=== PATIENT | female | born 1955 | race Caucasian/White ===

== ENCOUNTER 2021-06-29 18:12 | Outpatient (REF) | payer MEDICARE, MEDICAID, SELFPAY | END 2021-06-29 18:13 | disposition home or self-care (01) | LOC: HO.LNP 18:12 | PROVIDERS: Visit Provider Internal Medicine | DX: J06.9 Acute upper respiratory infection, unspecified (principal); Z20.822 Contact with and (suspected) exposure to COVID-19 | CPT/HCPCS: U0003; U0005 ==

== ENCOUNTER 2021-09-28 08:35 | Outpatient (RCR) | payer MEDICARE, MEDICAID, SELFPAY | END 2022-01-17 09:26 | disposition home or self-care (01) | LOC: HO.WCC 08:35 | PROVIDERS: PCP Nurse Practitioner Family; Visit Provider Physician Assistant | DX: I87.312 Chronic venous hypertension (idiopathic) with ulcer of left lower extremity (principal); L97.821 Non-pressure chronic ulcer of other part of left lower leg limited to breakdown of skin; I87.321 Chronic venous hypertension (idiopathic) with inflammation of right lower extremity; I73.9 Peripheral vascular disease, unspecified | CPT/HCPCS: 87071; 87077; 87186; 87205; 97597; 99212; 99213 ==

== ENCOUNTER 2021-11-09 10:52 | Emergency (ER) | payer MEDICARE, MEDICAID, SELFPAY ==
[2021-11-09 10:58] VITALS: BP 214/115; PULSE 102; RESP 18; TEMP 37; O2SAT 98; BMI 24.9
--- NOTE | 2021-11-09 11:02 | ECG_ITS ---
Test Reason : high blood pressure Blood Pressure : / mmHG Vent. Rate : 095 BPM Atrial Rate : 095 BPM P-R Int : 186 ms QRS Dur : 066 ms QT Int : 362 ms P-R-T Axes : 052 006 004 degrees QTc Int : 454 ms Normal sinus rhythm Minimal voltage criteria for LVH, may be normal variant ( R in aVL ) Borderline ECG No previous ECGs available Referred By: Generic ED Physician Electronically Signed By:Pj Leslie
[2021-11-09 12:02] LABS: Basophils Percent Auto 0.3 % (0-2); Eosinophils Absolute Auto 0.2 X10*3/uL (0.0-0.4); Eosinophils Percent Auto 1.5 % (0-4); Hematocrit 37.9 % (37.0-47.0); Hemoglobin 11.8 g/dl (12.0-16.0); Imm Gran Abs Auto 0.05 X10*3/uL (0.00-0.03); Imm Gran Pct Auto 0.5 % (0.0-0.4); Lymphocytes Absolute Auto 1.5 X10*3/uL (1.2-4.9); Lymphocytes Percent Auto 14.5 % (20-40); MANUAL DIFF FLAG NO; Mean Corpuscular HGB Conc 31.1 g/dl (31.0-35.0); Mean Corpuscular Hemoglobin 26.6 pg (27.0-33.0); Mean Corpuscular Volume 85.4 fL (80.0-98.0); Monocytes Absolute Auto 0.7 X10*3/uL (0.1-1.2); Monocytes Percent Auto 6.6 % (2-11); Neutrophils Percent Auto 76.6 % (45-73); Platelet Count 366 X10*3/uL (160-400); Red Blood Count 4.44 X10*6/uL (4.20-5.50); Red Cell Distribution Width 14.1 % (11.0-16.0); White Blood Count 10.4 X10*3/uL (4.8-10.8)
[2021-11-09 12:19] LABS: Anion Gap 17 (12-20); Blood Urea Nitrogen 20 mg/dL (9-16); Calcium 10.5 mg/dL (8.4-10.2); Carbon Dioxide 23 mmol/L (22-29); Chloride 104 mmol/L (96-108); Creatinine Clr Calc Pharmacy 63.6; Estimated Glomerular Filt Rate > 60; Glucose Random 104 mg/dL (60-115); Potassium 4.2 mmol/L (3.3-5.1); Sodium 140 mmol/L (135-145)
[2021-11-09 12:25] LABS: Troponin-I High Sensitivity < 3.5 ng/L (<3.5-17.0)
--- NOTE | 2021-11-09 12:27 | ED.GENADULT ---
HPI - General Adult General Chief complaint: General Medical Stated complaint: HBP Time Seen by Provider: 11/09/21 12:27 Source: patient Mode of arrival: ambulatory Limitations: no limitations History of Present Illness HPI narrative: patient was seen at the wound clinic for a routine visit for left leg chronic wound, she was sent here for evaluation because the blood pressure was elevated, she states she is been in a lot of stress of her family reason. The patient denies any chest pain any shortness of breath any other systemic complaints Onset (ago): hour(s) (2) Radiation: non-radiation Severity: moderate Relieving factors: none Exacerbating factors: none Related Data Previous Rx's Medication Instructions Recorded tramadol 50 mg tablet 50 mg PO BID PRN 8 Days #16 tab 10/26/21 amlodipine 5 mg tablet (Norvasc) 5 mg PO DAILY #10 tab 11/09/21 Allergies Allergy/AdvReac Type Severity Reaction Status Date / Time gabapentin Allergy Unknown nausea and Verified 06/29/21 13:47 vomiting levofloxacin Allergy Unknown nausea and Verified 06/29/21 13:47 vomiting Sulfa (Sulfonamide Allergy Unknown vomiting Verified 06/29/21 13:47 Antibiotics) sulfamethoxazole Allergy Unknown RASH Verified 06/29/21 13:47 [From BACTRIM] trimethoprim [From BACTRIM] Allergy Unknown RASH Verified 06/29/21 13:47 Review of Systems Review of Systems: Yes all other systems are reviewed and are negative Cardiovascular: Cardiovascular: Denies chest pain, Denies chest pain at rest, Denies chest pain with activity and Denies rapid heart rate Respiratory: Respiratory: Reports no additional respiratory complaints Gastrointestinal: Gastrointestinal: Denies abdominal pain Neurologic: Reports system reviewed and no additional complaints, except as documented [facility] Past Medical History [facility] Narrative: varicose vein,anxiety disorder Social History Social History Advance Directives: No Advance Directives Information Provided: No Physical Exam Vital Signs: Vital Signs: Last Vital Signs Temp 98.6 F 11/09/21 10:58 Pulse 101 H 11/09/21 13:30 Resp 16 11/09/21 13:30 BP 187/87 H 11/09/21 13:30 Pulse Ox 97 11/09/21 13:30 BMI result Body Mass Index 24.9 Const: General: cooperative, alert and anxious Nutritional Appearance: well nourished Orientation/consciousness: patient oriented x3 HENMT: Head: Yes normal to inspection Face and sinus: Yes normal facial exam Mouth: Normal oral and palatal mucosa present Throat: Yes posterior oropharynx normal Neck: Neck: Yes normal visual inspection, Yes full ROM and Yes no lymphadenopathy Chest: Chest palpation & inspection: normal inspection of the chest Resp: Effort & Inspection: normal respiratory effort Auscultation: clear to auscultation bilaterally Cardio: Jugular venous distension: no JVD Rhythm: regular rhythm GI: Inspection: Yes normal to inspection Palpation (GI): Soft to palpation, nontender, no guarding and not rigid Auscultation: normal bowel sounds Skin: General skin exam: no rashes or lesions noted, elasticity normal and turgor normal Neuro: General: patient oriented x3 Extrem: Other: good pulses lower extremities,she has dressing in the left lower leg Course Reevaluation(s) Reevaluation #1: feeling better BP down 187/87 ,started on norvasc 5 mg ,I discussed with her PCP Arian Byrd will follow up closely,we will start the pt on norvasc 5 mg daily Medical Decision Making Lab Data Result diagrams: 11/09/21 11:40 11/09/21 11:40 Labs: Lab Results 11/09/21 11/09/21 11/09/21 Range/Units 11:40 11:40 11:40 WBC 10.4 (4.8-10.8) X10*3/uL RBC 4.44 (4.20-5.50) X10*6/uL Hgb 11.8 L (12.0-16.0) g/dl Hct 37.9 (37.0-47.0) % MCV 85.4 (80.0-98.0) fL MCH 26.6 L (27.0-33.0) pg MCHC 31.1 (31.0-35.0) g/dl RDW 14.1 (11.0-16.0) % Plt Count 366 (160-400) X10*3/uL MPV 10.0 (9.4-12.3) fL Immature Gran % (Auto) 0.5 H (0.0-0.4) % Neut % (Auto) 76.6 H (45-73) % Lymph % (Auto) 14.5 L (20-40) % Cocke % (Auto) 6.6 (2-11) % Eos % (Auto) 1.5 (0-4) % Baso % (Auto) 0.3 (0-2) % Lymph # (Auto) 1.5 (1.2-4.9) X10*3/uL Cocke # (Auto) 0.7 (0.1-1.2) X10*3/uL Eos # (Auto) 0.2 (0.0-0.4) X10*3/uL Baso # (Auto) 0.0 (0.0-0.2) X10*3/uL Abs Immat Gran (auto) 0.05 H (0.00-0.03) X10*3/uL Absolute Neuts (auto) 8.0 (2.0-8.3) x10*3/uL Absolute Nucleated RBC 0.000 (0.0-0.012) X10*3/uL Nucleated RBC % (auto) 0.0 (0.0-0.2) /100WBC Sodium 140 (135-145) mmol/L Potassium 4.2 (3.3-5.1) mmol/L Chloride 104 (96-108) mmol/L Carbon Dioxide 23 (22-29) mmol/L Anion Gap 17 (12-20) BUN 20 H (9-16) mg/dL Creatinine 0.79 (0.5-1.4) mg/dL Estim Creat Clear Calc 63.6 Estimated GFR > 60 Random Glucose 104 (60-115) mg/dL Calcium 10.5 H (8.4-10.2) mg/dL Troponin I High Sens < 3.5 (<3.5-17.0) ng/L ECG Data Pacemaker model: NSR 98 no ischemic changes Discharge Plan Discharge Clinical Impression: Hypertension Patient Disposition: Home, Self-Care Instructions: Hypertension (ED) Additional Instructions: follow-up with your primary care physician return to the emergency room if you worse any concern with started you on Norvasc 5 mg daily Prescriptions: New amlodipine [Norvasc] 5 mg tablet 5 mg PO DAILY Qty: 10 RF: 0 No Action tramadol 50 mg tablet 50 mg PO BID PRN (Reason: pain) 8 Days Qty: 16 RF: 0 Referrals: Arian Heredia, [facility] [Primary Care Provider] - 2 days Interventions: ED Discharge Assessment Last Done: 11/09/21 14:03 Discharge Date/Time: 11/09/21 14:05
--- NOTE | 2021-11-09 12:38 | PC.NURSE ---
Pt received from triage: AOX4 but very anxious. Pt states she went to the wound clinic for LLE wound care today, very nervous for family reasons, and sent here for elevated BP. Pt does not take any BP meds NSR to sinus tachy noted on monitor. Lungs clear. Pt abd soft, round and non-tender. Pt ambulatory with steady gait.
[2021-11-09 12:40] VITALS: BP 242/109; PULSE 103; RESP 18; O2SAT 98
[2021-11-09] MEDS: LORazepam 1 MG TABLET PO (12:42)
[2021-11-09 13:30] VITALS: BP 187/87; PULSE 101; RESP 16; O2SAT 97
[2021-11-09] MEDS: amLODIPine Besylate 5 MG TABLET PO (13:48)
== END 2021-11-09 14:05 | disposition home or self-care (01) ==
PROVIDERS: Emergency Provider Emergency Medicine; PCP Nurse Practitioner Family
DX: I10 Essential (primary) hypertension (principal); Z72.89 Other problems related to lifestyle; Z63.79 Other stressful life events affecting family and household
CPT/HCPCS: 36415; 80048; 84484; 85025; 93005; 99283

== ENCOUNTER 2021-11-16 12:35 | Outpatient (REF) | payer MEDICARE, MEDICAID, SELFPAY ==
--- NOTE | ~2021-11-16 | US_ITS ---
EXAMINATION: US LOWER EXTREMITY VENOUS (REFLUX EXAM), BILATERAL CLINICAL INDICATION: This is a 66-year-old female with a history of left lower extremity Venaseal. COMPARISON: Comparison is made to a previous study dated 04/20/2020 and 03/30/2020. TECHNIQUE: Color flow triplex imaging and compression Doppler was performed to evaluate both the deep and the superficial systems bilaterally. To evaluate the superficial system, the examination was performed in the upright position. Color-flow Doppler ultrasound and compression ultrasound were utilized. In addition, maneuvers were utilized to demonstrate reflux. FINDINGS: 1. DEEP VENOUS ULTRASOUND OF THE RIGHT LOWER EXTREMITY: Common Femoral Vein: Compressible, normal respiratory variation and augmented flow. Femoral vein: Compressible, normal color flow and augmentation. Popliteal Vein: Compressible, normal augmentation. Deep Reflux: There is no evidence of reflux in the deep system in either the common femoral vein or the popliteal vein. There is no evidence of a Aguilar's cyst. 2. SUPERFICIAL ULTRASOUND WITH DOPPLER OF RIGHT LOWER EXTREMITY: GREAT SAPHENOUS VEIN: Saphenofemoral Junction: 0.6 cm. There is no reflux. Mid Thigh: 0.2 cm. There is no reflux. Above Knee: 0.2 cm. There is no reflux. Below Knee: 0.1 cm. The reflux time is 3336 ms. Mid Calf: 0.2 cm. The reflux time is 1604 ms. Ankle: 0.2 cm. The reflux time is 548 ms. GSV REFLUX: There is no reflux at the saphenofemoral junction. There is reflux below the knee. This is similar to the previous study. 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 This was not apparent previously. SMALL SAPHENOUS VEIN: Proximal: 0.2 cm. The reflux time is 3320 ms. Distal: 0.1 cm. The reflux time is 2480 ms. SSV REFLUX: There is now reflux at the junction in the small saphenous vein. This reflux was not apparent on the previous study. VEIN OF GIACOMINI: None Imaged. PERFORATORS: There are 0.2 cm perforators in the mid thigh and mid calf, respectively, without evidence of reflux. VARICOSITIES: There are 0.6 cm varicose veins off the saphenofemoral junction without reflux. 3. DEEP VENOUS ULTRASOUND OF THE LEFT LOWER EXTREMITY: Common Femoral Vein: Compressible, normal respiratory variation and augmented flow. Femoral Vein: Compressible, normal color flow and augmentation. Popliteal Vein: Compressible, normal augmentation. Deep Reflux: There is no evidence of reflux in the deep system in either the common femoral vein or the popliteal vein. There is no evidence of a Aguilar's cyst. 4. SUPERFICIAL ULTRASOUND WITH DOPPLER OF LEFT LOWER EXTREMITY: GREAT SAPHENOUS VEIN: Saphenofemoral Junction: 0.8 cm. There is no reflux. Mid Thigh: 0.4 cm. This appears closed status post treatment. Above Knee: 0.3 cm. This appears closed status post treatment. Below Knee: 0.2 cm. The reflux time is 624 ms. Mid Calf: 0.2 cm. There is no reflux. Ankle: Could not be evaluated because there is a wound present. GSV REFLUX: There is isolated reflux below the knee. There is no junctional reflux. DUPLICATED GREAT SAPHENOUS VEIN: There is a 0.6 cm duplicated lateral great saphenous vein without evidence of reflux at the junction. SMALL SAPHENOUS VEIN: Proximal: 0.3 cm Distal: 0.2 cm SSV REFLUX: No evidence of reflux. VEIN OF GIACOMINI: None Imaged. PERFORATORS: There are 0.2 cm perforators in the mid thigh and proximal calf without reflux. VARICOSITIES: None Imaged US/US venous duplex LE BI IMPRESSION: 1. There is a patent right great saphenous vein without evidence of reflux saphenofemoral junction. There is reflux below the knee down to the ankle. 2. 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 3. There is a patent right small saphenous vein with reflux at the junction. 4. There is a patent junction of the left great saphenous vein without extension of thrombus into the deep venous system. There is then closure beginning in the mid left superficial femoral vein. 5. There is a patent left lateral great saphenous vein without evidence of reflux. 6. There is a patent left small saphenous vein without evidence of reflux.
== END 2021-11-16 12:36 | disposition home or self-care (01) ==
LOC: HO.US 12:35
PROVIDERS: PCP Nurse Practitioner Family; Visit Provider Physician Assistant
DX: I87.2 Venous insufficiency (chronic) (peripheral) (principal)
CPT/HCPCS: 93970

== ENCOUNTER → 2021-11-23 10:08 | Outpatient (BNVA) | payer MEDICARE, MEDICAID, SELFPAY | PROVIDERS: PCP Nurse Practitioner Family; Visit Provider Surgery Vascular Surgery | DX: I83.12 Varicose veins of left lower extremity with inflammation (principal) | CPT/HCPCS: 99212 ==

== ENCOUNTER → 2021-12-07 14:05 | Outpatient (BNVA) | payer MEDICARE, MEDICAID, SELFPAY | PROVIDERS: PCP Nurse Practitioner Family; Visit Provider Surgery Vascular Surgery | DX: I83.12 Varicose veins of left lower extremity with inflammation (principal) | CPT/HCPCS: 99212 ==

== ENCOUNTER → 2022-01-25 11:02 | Outpatient (BNVA) | payer MEDICARE, MEDICAID, SELFPAY | PROVIDERS: PCP Nurse Practitioner Family; Visit Provider Surgery Vascular Surgery | DX: L97.929 Non-pressure chronic ulcer of unspecified part of left lower leg with unspecified severity (principal) | CPT/HCPCS: 99212 ==

== ENCOUNTER 2022-01-27 09:09 | Inpatient (IN) | payer MEDICARE, SELFPAY ==
--- NOTE | ~2022-01-27 | MR_ITS ---
EXAMINATION: MRI LEFT LOWER LEG WITHOUT AND WITH CONTRAST. CLINICAL INFORMATION: Chronic left leg wound, elevated white count, cellulitis, rule out osteomyelitis. COMPARISON: X-ray 01/27/2022 TECHNIQUE: MRI in a high-field magnet without and with contrast. 10 cc Gadavist. FINDINGS: Multifocal areas of skin irregularity/ulceration circumferentially around the mid and distal tibia/fibula. There is soft tissue swelling, with skin/subcutaneous edema/cellulitis. No focal organized or drainable fluid collections. Marrow signal in the tibia and fibula is within normal limits without MRI evidence of osteomyelitis. No evidence of muscle tear, or significant edema to suggest muscle strain or myositis. Visualized tendons intact. MR/MR lower leg LT wo/w con IMPRESSION: Extensive areas of skin irregularity/ulceration in the mid and distal tibia/fibula. There is subcutaneous edema/cellulitis present. No organized or drainable fluid collection in the soft tissues. No MRI findings to suggest osteomyelitis.
--- NOTE | ~2022-01-27 | XR_ITS ---
EXAMINATION: XR TIBIA AND FIBULA, LEFT CLINICAL INFORMATION: Rule out osteomyelitis. COMPARISON: None TECHNIQUE: AP and lateral views of the left tibia and fibula were obtained. FINDINGS: Soft tissue wound with overlying radiopaque densities is seen in the inferolateral soft tissues superficial to the distal fibula. The tibia and fibula are intact. No acute fracture or dislocation is seen. No overt cortical erosive changes are seen. Mild femoral-tibial degenerative joint changes are seen in the left knee most pronounced medially. The left ankle joint is unremarkable. Generalized mild soft tissue swelling. XR/XR tibia fibula LT 2V IMPRESSION: Soft tissue wound with associated calcification/possible ointment/bandaging without acute underlying osseous abnormality.
[2022-01-27 09:13] VITALS: BP 142/75; PULSE 93; RESP 16; TEMP 36.8; O2SAT 97; BMI 34.1
--- NOTE | 2022-01-27 09:31 | ED.WOUNDLAC ---
HPI - Wound/Laceration General Chief Complaint: Wound/Laceration Stated Complaint: antibiotic Time Seen by Provider: 01/27/22 09:18 Source: patient and family () Mode of arrival: ambulatory Limitations: no limitations History of Present Illness HPI narrative: Patient is a 66 year old female presenting to the emergency department today with a chronic left lower leg wound. Patient states that Dr. Orozco strongly recommended the patient come to the emergency department for IV antibiotics and admission. Patient states that she has been dealing with this left lower leg wound for quite awhile. Patient denies any dizziness, lightheadedness, abdominal pain, nausea, vomiting, fever, chills, blurry vision, double vision, loss of vision, chest pain, difficulty breathing, shortness of breath, back pain, night sweats, pain with urination, increased urinary frequency, increased urinary urgency, blood in her urine or stool, syncope or a near syncopal episode, recent trauma or falls, bowel incontinence, bladder incontinence, bowel retention, bladder retention, or any other complaints at this time. Associated symptoms: none Related Data Home Medications Medication Instructions Recorded Confirmed acetaminophen 500 mg tablet 1,000 mg PO Q6H PRN 01/27/22 01/27/22 ibuprofen 600 mg tablet 600 mg PO Q6H PRN 01/27/22 01/27/22 omeprazole 20 mg capsule,delayed 20 mg PO DAILY 01/27/22 01/27/22 release Previous Rx's Medication Instructions Recorded metoprolol succinate 100 mg 100 mg PO DAILY 90 Days #90 tab 12/14/21 tablet,extended release 24 hr amlodipine 5 mg tablet (Norvasc) 10 mg PO DAILY #60 tab 01/06/22 buspirone 5 mg tablet 5 mg PO BID #60 tab 01/25/22 Allergies Allergy/AdvReac Type Severity Reaction Status Date / Time gabapentin Allergy Unknown nausea and Verified 01/25/22 11:14 vomiting levofloxacin Allergy Unknown nausea and Verified 01/25/22 11:14 vomiting Sulfa (Sulfonamide Allergy Unknown vomiting Verified 01/25/22 11:14 Antibiotics) sulfamethoxazole Allergy Unknown RASH Verified 01/25/22 11:14 [From BACTRIM] trimethoprim [From BACTRIM] Allergy Unknown RASH Verified 01/25/22 11:14 Review of Systems Constitutional: Constitutional: Reports no additional constitutional complaints, Denies chills, Denies fever(s) and Denies night sweats Eyes: Eyes: Reports no additional eye complaints, Denies blurry vision, Denies change in vision, Denies diplopia, Denies eye discharge, Denies loss of vision and Denies eye pain ENT: Denies dizziness Cardiovascular: Cardiovascular: Reports no additional cardiovascular complaints, Denies chest pain, Denies lightheadedness, Denies Loss of Consciousness and Denies dyspnea Respiratory: Respiratory: Reports no additional respiratory complaints and Denies dyspnea Gastrointestinal: Gastrointestinal: Reports no additional gastrointestinal complaints, Denies abdominal pain, Denies melena, Denies hematochezia, Denies change in bowel habits and Denies change in stool character Genitourinary: Genitourinary: Denies hematuria, Denies urinary frequency, Denies dysuria, Denies urinary incontinence, Denies urinary hesitancy and Denies urinary urgency Musculoskeletal: Musculoskeletal: Reports no additional musculoskeletal complaints, Denies numbness and Denies tingling Integumentary/Breasts: Comments: left lower leg chronic wound Neurologic: Denies dizziness, Denies loss of vision, Denies numbness and Denies tingling Psychiatric: Psychiatric: Reports no additional psychiatric complaints Endocrine: Endocrine: Reports no additional endocrine complaints Hematologic/Lymphatic: Hematologic/Lymphatic: Reports no additional hematologic/lymphatic complaints Allergic/Immunologic: Allergic/Immunologic: Reports no additional allergic/immunologic complaints PMFSH Past Medical History Attestation statement: The following information was validated with the patient. Source: old records reviewed Medical History HTN (hypertension) Social History Social History Alcohol intake: never Patient Tobacco Use Status: Never used Tobacco Use of substances other than those prescribed or required for medical reasons: No Advance Directives: No Advance Directives Information Provided: No Physical Exam Vital Signs: Vital Signs: Last Vital Signs Temp 98.6 F 01/27/22 14:57 Pulse 92 01/27/22 14:57 Resp 16 01/27/22 14:57 BP 160/61 H 01/27/22 14:57 Pulse Ox 97 01/27/22 14:57 BMI result Body Mass Index 34.1 Const: General: cooperative, no acute distress, alert and awake Nutritional Appearance: well nourished Orientation/consciousness: patient oriented x3 Limitations: no limitations HEENT: Head: Yes normal to inspection and Yes atraumatic Ears: hearing grossly normal bilaterally and external ears normal General nose exam: Normal external nose present, no nasal discharge noted and no epistaxis Face and sinus: Yes normal facial exam, No abrasion and No laceration Mouth: Normal oral and palatal mucosa present, no drooling and no muffled voice Eyes: General: appearance normal, both eyes and all related structures Periorbital: periorbital findings normal Eyelids: Yes eyelids normal Conjunctivae: conjunctivae normal Pupils: Equal, round and reactive pupils present EOM: EOMs intact bilaterally Neck: Neck: Yes normal visual inspection, Yes full ROM and Yes no lymphadenopathy Chest: Chest palpation & inspection: normal inspection of the chest Resp: Effort & Inspection: normal respiratory effort and able to speak in complete sentences Auscultation: clear to auscultation bilaterally Cardio: Rate: regular rate Rhythm: regular rhythm GI: Inspection: Yes normal to inspection Skin: Other: patient has an extensive wound to the left lower leg in various stages of disease (see picture attached to Dr. Orozco's latest note from 01/2022) Neuro: General: patient oriented x3 and moves all extremities Cranial nerves: Yes Equal, round and reactive pupils present Cognition (Neuro): normal cognition Motor exam (neuro): 5/5 motor strength present throughout Sensory Exam: Normal double simultaneous stimulation for sensation Coordination: [id number] test normal Extrem: General: Yes normal to inspection, Yes full ROM and Yes capillary refill normal Psych: Appearance: grossly normal Mental Status: mental status grossly normal Affect: normal affect Attitude: cooperative Thought process: Normal thought process present Thought content: Normal thought content present Insight: Good insight present (Psych) MDM - Wound/Laceration MDM Narrative Medical decision making narrative: Patient is a 66 year old female presenting to the emergency department today with left lower leg wounds. Patient's physical exam showed an extensive left lower leg wound in multiple stages of disease. Patient's blood work showed an elevated WBC count with a left shift. Patient's left lower x-ray showed a soft tissue wound with associated calcification/possible ointment/bandaging without underlying osseous abnormality. I explained my physical exam findings as well as all test results to the patient and the patient's . I answered all questions asked by the patient and the patient's . Patient received IV ABX and pain management. I spoke to Dr. Pierce who agreed to admission of the patient. Patient and the patient's verbalized agreement and understanding with this treatment plan and admission. Differential Diagnosis Differential diagnosis: Likely avulsion of skin (chronic lower left leg ulceration) Medical Records Attestation: I reviewed the patient's medical records. Lab Data Attestation: I reviewed the patient's lab results. Result diagrams: 01/27/22 10:04 01/27/22 10:04 Labs: Lab Results 01/27/22 01/27/22 01/27/22 Range/Units 10:04 10:04 10:04 WBC 11.9 H (4.8-10.8) X10*3/uL RBC 3.51 L D (4.20-5.50) X10*6/uL Hgb 9.6 L (12.0-16.0) g/dl Hct 30.6 L (37.0-47.0) % MCV 87.2 (80.0-98.0) fL MCH 27.4 (27.0-33.0) pg MCHC 31.4 (31.0-35.0) g/dl RDW 14.5 (11.0-16.0) % Plt Count 355 (160-400) X10*3/uL MPV 9.5 (9.4-12.3) fL Immature Gran % (Auto) 0.3 (0.0-0.4) % Neut % (Auto) 85.2 H (45-73) % Lymph % (Auto) 7.4 L (20-40) % Laurel % (Auto) 6.7 (2-11) % Eos % (Auto) 0.3 (0-4) % Baso % (Auto) 0.1 (0-2) % Lymph # (Auto) 0.9 L (1.2-4.9) X10*3/uL Laurel # (Auto) 0.8 (0.1-1.2) X10*3/uL Eos # (Auto) 0.0 (0.0-0.4) X10*3/uL Baso # (Auto) 0.0 (0.0-0.2) X10*3/uL Abs Immat Gran (auto) 0.04 H (0.00-0.03) X10*3/uL Absolute Neuts (auto) 10.1 H (2.0-8.3) x10*3/uL Absolute Nucleated RBC 0.000 (0.0-0.012) X10*3/uL Nucleated RBC % (auto) 0.0 (0.0-0.2) /100WBC ESR 92 H (0-20) MM/HR Sodium 139 (135-145) mmol/L Potassium 3.6 (3.3-5.1) mmol/L Chloride 106 (96-108) mmol/L Carbon Dioxide 22 (22-29) mmol/L Anion Gap 15 (12-20) BUN 17 H (9-16) mg/dL Creatinine 0.79 (0.5-1.4) mg/dL Estim Creat Clear Calc 74.1 Estimated GFR > 60 Random Glucose 120 H (60-115) mg/dL Calcium 9.4 D (8.4-10.2) mg/dL Total Bilirubin 0.6 (0.0-1.0) mg/dL AST 9 (5-31) U/L ALT 11 (0-31) U/L Alkaline Phosphatase 81 (39-117) U/L C-Reactive Protein 12.90 H (< or = 0.50) mg/dL C-React Prot High Sens Total Protein 6.8 (6.5-8.0) g/dL Albumin 4.1 (3.5-5.0) g/dL COVID-19 ([facility]) (Negative) COVID-19 Clin Com 01/27/22 01/27/22 Range/Units 10:04 11:39 WBC (4.8-10.8) X10*3/uL RBC (4.20-5.50) X10*6/uL Hgb (12.0-16.0) g/dl Hct (37.0-47.0) % MCV (80.0-98.0) fL MCH (27.0-33.0) pg MCHC (31.0-35.0) g/dl RDW (11.0-16.0) % Plt Count (160-400) X10*3/uL MPV (9.4-12.3) fL Immature Gran % (Auto) (0.0-0.4) % Neut % (Auto) (45-73) % Lymph % (Auto) (20-40) % Laurel % (Auto) (2-11) % Eos % (Auto) (0-4) % Baso % (Auto) (0-2) % Lymph # (Auto) (1.2-4.9) X10*3/uL Laurel # (Auto) (0.1-1.2) X10*3/uL Eos # (Auto) (0.0-0.4) X10*3/uL Baso # (Auto) (0.0-0.2) X10*3/uL Abs Immat Gran (auto) (0.00-0.03) X10*3/uL Absolute Neuts (auto) (2.0-8.3) x10*3/uL Absolute Nucleated RBC (0.0-0.012) X10*3/uL Nucleated RBC % (auto) (0.0-0.2) /100WBC ESR (0-20) MM/HR Sodium (135-145) mmol/L Potassium (3.3-5.1) mmol/L Chloride (96-108) mmol/L Carbon Dioxide (22-29) mmol/L Anion Gap (12-20) BUN (9-16) mg/dL Creatinine (0.5-1.4) mg/dL Estim Creat Clear Calc Estimated GFR Random Glucose (60-115) mg/dL Calcium (8.4-10.2) mg/dL Total Bilirubin (0.0-1.0) mg/dL AST (5-31) U/L ALT (0-31) U/L Alkaline Phosphatase (39-117) U/L C-Reactive Protein (< or = 0.50) mg/dL C-React Prot High Sens Cancelled Total Protein (6.5-8.0) g/dL Albumin (3.5-5.0) g/dL COVID-19 ([facility]) Negative (Negative) COVID-19 Clin Com See Note Imaging Data Tibia/Fibula x-ray (left): Attestation: I personally reviewed and interpreted this imaging study as follows: My impression: no acute aliya process. Radiologist's impression: EXAMINATION: XR TIBIA AND FIBULA, LEFT CLINICAL INFORMATION: Rule out osteomyelitis. COMPARISON: None? TECHNIQUE: AP and lateral views of the left tibia and fibula were obtained. FINDINGS: Soft tissue wound with overlying radiopaque densities is seen in the inferolateral soft tissues superficial to the distal fibula. The tibia and fibula are intact. No acute fracture or dislocation is seen. No overt cortical erosive changes are seen. Mild femoral-tibial degenerative joint changes are seen in the left knee most pronounced medially. The left ankle joint is unremarkable. Generalized mild soft tissue swelling. XR/XR tibia fibula LT 2V IMPRESSION: Soft tissue wound with associated calcification/possible ointment/bandaging without acute underlying osseous abnormality. Dictated By: Shaun Stewart MD Signed By: Electronically signed by Shaun Stewart MD 01/27/22 1031 Discharge Plan Discharge Clinical Impression: Leg wound, left, Cellulitis Patient Disposition: Admitted As Inpatient
[2022-01-27 10:11] LABS: MANUAL DIFF FLAG NO
[2022-01-27 10:15] LABS: Basophils Percent Auto 0.1 % (0-2); Eosinophils Percent Auto 0.3 % (0-4); Hematocrit 30.6 % (37.0-47.0); Hemoglobin 9.6 g/dl (12.0-16.0); Imm Gran Abs Auto 0.04 X10*3/uL (0.00-0.03); Imm Gran Pct Auto 0.3 % (0.0-0.4); Lymphocytes Absolute Auto 0.9 X10*3/uL (1.2-4.9); Lymphocytes Percent Auto 7.4 % (20-40); Mean Corpuscular HGB Conc 31.4 g/dl (31.0-35.0); Mean Corpuscular Hemoglobin 27.4 pg (27.0-33.0); Mean Corpuscular Volume 87.2 fL (80.0-98.0); Mean Platelet Volume 9.5 fL (9.4-12.3); Monocytes Absolute Auto 0.8 X10*3/uL (0.1-1.2); Monocytes Percent Auto 6.7 % (2-11); Neutrophils Absolute Auto 10.1 x10*3/uL (2.0-8.3); Neutrophils Percent Auto 85.2 % (45-73); Platelet Count 355 X10*3/uL (160-400); Red Blood Count 3.51 X10*6/uL (4.20-5.50); Red Cell Distribution Width 14.5 % (11.0-16.0); White Blood Count 11.9 X10*3/uL (4.8-10.8)
[2022-01-27 10:30] LABS: Alanine Aminotransferase 11 U/L (0-31); Albumin Level 4.1 g/dL (3.5-5.0); Alkaline Phosphatase 81 U/L (39-117); Anion Gap 15 (12-20); Aspartate Amino Transferase 9 U/L (5-31); Bilirubin Total 0.6 mg/dL (0.0-1.0); Blood Urea Nitrogen 17 mg/dL (9-16); Calcium 9.4 mg/dL (8.4-10.2); Carbon Dioxide 22 mmol/L (22-29); Chloride 106 mmol/L (96-108); Creatinine Clr Calc Pharmacy 74.1; Estimated Glomerular Filt Rate > 60; Glucose Random 120 mg/dL (60-115); Potassium 3.6 mmol/L (3.3-5.1); Sodium 139 mmol/L (135-145); Total Protein 6.8 g/dL (6.5-8.0)
[2022-01-27 10:57] LABS: Erythrocyte Sedimentation Rate 92 MM/HR (0-20)
[2022-01-27] MEDS: Morphine Sulfate 2 MG/ML CARTRIDGE 1 MG IVPUSH (10:58)
[2022-01-27] MEDS: ondansetron HCL 4 MG/2 ML VIAL IVPUSH ×2 (10:58→18:37)
[2022-01-27] MEDS: Piperacillin Sodium/Tazobactam 4.5 GM in 0.9 % Sodium Chloride 100 ML IV (11:02)
--- NOTE | 2022-01-27 11:13 | PC.NURSE ---
pt/ aware of plan of care for admission to hosp.
[2022-01-27 12:03] LABS: COVID-19 Test Negative (Negative)
[2022-01-27 12:34] VITALS: BP 139/65; PULSE 87; RESP 17; TEMP 36.7; O2SAT 98
[2022-01-27] MEDS: Morphine Sulfate 2 MG/ML CARTRIDGE IVPUSH ×2 (12:36→16:38)
--- NOTE | 2022-01-27 13:10 | PM.IMHP ---
History of Present Illness Date of Service: 01/27/22 Attending physician on admission: Leroy Lange Chief Complaint: Nonhealing leg wound This is a 58-year-old female with history of chronic venous insufficiency who presents to the emergency department due to nonhealing left leg wound. Patient was initially followed by the wound care center starting in September 2021 for ulcers of the left lower extremity. She was initially placed in an Unna boot but due to copious drainage this seems to have caused maceration of the surrounding skin. Since that time she has had 2 courses of antibiotics and has followed up with Dr. Orozco of vascular surgery. She has been unable to tolerate any sort of compression. She has been managing her pain with ibuprofen and Tylenol. She saw Dr. Orozco on January 25 and her wounds were still not improving therefore he recommended that she come to the hospital for IV antibiotics. She reports significant pain, copious drainage. She is afebrile, lab work significant for mild leukocytosis 11.9 as well as elevated ESR of 92 and CRP of 12.9. Plain film x-ray showed no evidence of overt cortical erosive changes. She was treated with IV vancomycin and Zosyn and required multiple doses of IV narcotics for adequate pain control. She will be admitted to the hospital for further management of nonhealing leg wound and cellulitis. Vaccination status-patient has received Moderna x3 Review of Systems Constitutional: Constitutional: Denies chills and Denies fever(s) Cardiovascular: Cardiovascular: Denies chest pain, Denies palpitations and Denies dyspnea Respiratory: Respiratory: Denies cough and Denies dyspnea Gastrointestinal: Gastrointestinal: Denies abdominal pain, Denies diarrhea, Denies nausea and Denies vomiting Endocrine: Endocrine: Denies palpitations [facility] Medical History (Updated 01/27/22 @ 13:18 by ASHIA Vale) HTN (hypertension) Functional capacity: independent ambulation Pertinent family history: denies history of early CAD. mother had history of some cancer, she can't remember details Social History Alcohol intake: never Patient Tobacco Use Status: Never used Tobacco Use of substances other than those prescribed or required for medical reasons: No Advance Directives: No Advance Directives Information Provided: No Meds Allergies Allergy/AdvReac Type Severity Reaction Status Date / Time gabapentin Allergy Unknown nausea and Verified 01/25/22 11:14 vomiting levofloxacin Allergy Unknown nausea and Verified 01/25/22 11:14 vomiting Sulfa (Sulfonamide Allergy Unknown vomiting Verified 01/25/22 11:14 Antibiotics) sulfamethoxazole Allergy Unknown RASH Verified 01/25/22 11:14 [From BACTRIM] trimethoprim [From BACTRIM] Allergy Unknown RASH Verified 01/25/22 11:14 Active Medications: Current Medications Acetaminophen (Acetaminophen 325 Mg Tablet) 650 mg PO Q6H PRN PRN Reason: Pain, Mild (Pain Scale 1-3) Docusate Sodium (Docusate Sodium 100 Mg Capsule) 100 mg PO DAILY [facility] Enoxaparin Sodium (Enoxaparin Sodium 40 Mg/0.4 Ml Syringe) 40 mg SUBCUT Q24H [facility] Piperacillin Sod/Tazobactam (Sod 3.375 gm/ Sodium Chloride) 50 mls @ 100 mls/hr IV Q6H [facility] Melatonin (Melatonin 3 Mg Tablet) 6 mg PO BEDTIME PRN PRN Reason: Insomnia Morphine Sulfate (Morphine Sulfate 2 Mg/Ml Cartridge) 2 mg IVPUSH Q4H PRN; Protocol PRN Reason: Pain, Severe (Pain Scale 7-10) Oxycodone HCl (Oxycodone Hcl Immed Release 5 Mg Tablet) 5 mg PO Q6H PRN PRN Reason: Pain, Moderate (Pain Scale 4-6 Pharmacy Consult (Consult Rx Perform Med Rec) 1 each MISCELLANE ONCE PRN PRN Reason: Consult order Pharmacy Consult (Consult Rx Vancomycin Dosing) 1 each MISCELLANE DAILY PRN PRN Reason: Consult order Senna (Sennosides 8.6 Mg Tablet) 17.2 mg PO BEDTIME [facility] Sodium Chloride (0.9 % Sodium Chloride Flush 3 Ml Syringe) 3 ml IVFLUSH QSHIFT [facility] Home Medications Medication Instructions Recorded Confirmed Last Taken Type acetaminophen 500 mg tablet 1,000 mg PO Q6H PRN 01/27/22 01/27/22 01/26/22 History ibuprofen 600 mg tablet 600 mg PO Q6H PRN 01/27/22 01/27/22 01/26/22 History omeprazole 20 mg capsule,delayed 20 mg PO DAILY 01/27/22 01/27/22 01/27/22 History release Physical Exam Vital Signs and Narrative: Vital Signs: Last Vital Signs Temp 98.0 F 01/27/22 12:34 Pulse 87 01/27/22 12:34 Resp 17 01/27/22 12:34 BP 139/65 01/27/22 12:34 Pulse Ox 98 01/27/22 12:34 BMI result Body Mass Index 34.1 Const: Other: appears uncomfortable General: alert and awake Nutritional Appearance: overweight Orientation/consciousness: patient oriented x3 Resp: Effort & Inspection: normal respiratory effort and able to speak in complete sentences Auscultation: clear to auscultation bilaterally Cardio: Rate: regular rate Heart sounds: S1 normal heart sound present and S2 normal heart sound present GI: Inspection: No Abdominal wall edema Palpation (GI): Soft to palpation and nontender Skin: Other: Neuro: General: patient oriented x3 Extrem: General: Yes no pedal edema Results Labs CBC and Chem 7: 01/27/22 10:04 01/27/22 10:04 Labs: Laboratory Results - last 24 hr 01/27/22 01/27/22 01/27/22 10:04 10:04 10:04 MCV 87.2 MCH 27.4 MCHC 31.4 RDW 14.5 Plt Count 355 MPV 9.5 Immature Gran % (Auto) 0.3 Neut % (Auto) 85.2 H Lymph % (Auto) 7.4 L [place] % (Auto) 6.7 Eos % (Auto) 0.3 Baso % (Auto) 0.1 Lymph # (Auto) 0.9 L [place] # (Auto) 0.8 Eos # (Auto) 0.0 Baso # (Auto) 0.0 Abs Immat Gran (auto) 0.04 H Absolute Neuts (auto) 10.1 H Absolute Nucleated RBC 0.000 Nucleated RBC % (auto) 0.0 ESR 92 H Anion Gap 15 Estim Creat Clear Calc 74.1 Estimated GFR > 60 Random Glucose 120 H Calcium 9.4 D Total Bilirubin 0.6 AST 9 ALT 11 Alkaline Phosphatase 81 C-Reactive Protein 12.90 H C-React Prot High Sens Total Protein 6.8 Albumin 4.1 COVID-19 ([facility]) COVID-19 Clin Com 01/27/22 01/27/22 10:04 11:39 MCV MCH MCHC RDW Plt Count MPV Immature Gran % (Auto) Neut % (Auto) Lymph % (Auto) [place] % (Auto) Eos % (Auto) Baso % (Auto) Lymph # (Auto) [place] # (Auto) Eos # (Auto) Baso # (Auto) Abs Immat Gran (auto) Absolute Neuts (auto) Absolute Nucleated RBC Nucleated RBC % (auto) ESR Anion Gap Estim Creat Clear Calc Estimated GFR Random Glucose Calcium Total Bilirubin AST ALT Alkaline Phosphatase C-Reactive Protein C-React Prot High Sens Cancelled Total Protein Albumin COVID-19 ([facility]IA) Negative COVID-19 Clin Com See Note Imaging Radiologist's Impressions: Impressions Tibia/Fibula X-Ray 01/27/22 09:45 IMPRESSION: Soft tissue wound with associated calcification/possible ointment/bandaging without acute underlying osseous abnormality. Assessment and Plan (1) Venous insufficiency: Status: Acute Plan This is a 66-year-old female with history of insufficiency, hypertension, nonhealing left leg wound for several months sent to the emergency department by vascular surgery Nonhealing left leg ulcer/cellulitis r/t venous insufficiency Circumferential erythema from ankle to knee with multiple areas of ulceration No evidence of sepsis at this time. -MRI pending to rule out osteomyelitis given significant elevation in ESR/CRP -IV vancomycin and zosyn -ID consult -vascular consult Hypertension Continue home Norvasc, metoprolol GERD Continue omeprazole Mood Continue buspirone DVT prophylaxis-Lovenox Code status-full code HCP - , Chang Attending- Dr. lange Due to the severity of the patient's left leg wound she will likely require 2 midnight stay in the hospital Quality Stroke Does the patient have a stroke diagnosis?: No VTE Prior VTE?: No VTE Risk Level:: Medical - moderate - high VTE Device Contraindication: Treatment Not Indicated VTE Drug Contraindication: N/A - Med Ordered
--- NOTE | 2022-01-27 13:13 | PHA.MEDREC ---
Pharmacy Consult ? Medication Reconciliation Pharmacy has completed the medication reconciliation. No remarkable issues. Dinorah Conti, JamesD
[2022-01-27 14:57] VITALS: BP 160/61; PULSE 92; RESP 16; TEMP 37; O2SAT 97
[2022-01-27 16:00] VITALS: BP 179/74; PULSE 83; RESP 18; TEMP 36.7; O2SAT 95
[2022-01-27] MEDS: Enoxaparin Sodium 40 MG/0.4 ML SYRINGE SUBCUT (16:15)
[2022-01-27] MEDS: Piperacillin Sodium/Tazobactam 3.375 GM in 0.9 % Sodium Chloride 50 ML IV ×2 (16:16→20:00)
[2022-01-27] MEDS: 0.9 % Sodium Chloride Flush 3 ML SYRINGE IVFLUSH (17:04)
--- NOTE | 2022-01-27 18:52 | PHA.PROG ---
Admission Date/Time: January 27, 2022 12:56 Indication: skin and skin structure Weight in k.265 kg Adjusted body weight in K.9 [place] body weight in K.7 Obesity Dosing Indication % IBW:65% overweight Serum Creatinine - Last 168 Hours 01/27/22 10:04 Creatinine 0.79 Estimated CrCl and GFR - Last 168 Hours 01/27/22 10:04 Estim Creat Clear Calc 74.1 Estimated GFR > 60 Vancomycin Loading Dose: 2000 mg Current Vancomycin Dosing Regimen:1250 mg q 24 hours Vancomycin Monitoring using AUC goal of 400 - 600 range with trough as surrogate marker: 450 predicted AUC Date and Time for next Vancomycin Level to be drawn: Pharmacist Comments on Vancomycin Plan: WILL GET LEVEL AFTER 2 DOSES Vancomycin dosing will take advantage of [employer] as a clinical decision support tool that uses Bayesian modeling to calculate individual patient's pharmacokinetic parameters and forecast the patient's drug concentration time course with the target goal AUC 24 range of 400 - 600 mg/L/hr.
[2022-01-27] MEDS: Prochlorperazine Edisylate 10 MG/2 ML VIAL 5 MG IVPUSH (20:00)
[2022-01-27 23:38] VITALS: BP 171/74; PULSE 93; RESP 18; TEMP 37.1; O2SAT 94
[2022-01-28] MEDS: Piperacillin Sodium/Tazobactam 3.375 GM in 0.9 % Sodium Chloride 50 ML IV ×4 (02:08→19:58)
[2022-01-28] MEDS: 0.9 % Sodium Chloride Flush 3 ML SYRINGE IVFLUSH ×3 (02:08→16:23)
[2022-01-28] MEDS: Morphine Sulfate 2 MG/ML CARTRIDGE IVPUSH ×3 (05:05→18:16)
[2022-01-28 05:57] LABS: Hematocrit 27.6 % (37.0-47.0); Hemoglobin 8.5 g/dl (12.0-16.0); Mean Corpuscular HGB Conc 30.8 g/dl (31.0-35.0); Mean Corpuscular Hemoglobin 27.2 pg (27.0-33.0); Mean Corpuscular Volume 88.5 fL (80.0-98.0); Mean Platelet Volume 9.2 fL (9.4-12.3); Platelet Count 311 X10*3/uL (160-400); Red Blood Count 3.12 X10*6/uL (4.20-5.50); Red Cell Distribution Width 14.6 % (11.0-16.0); White Blood Count 8.7 X10*3/uL (4.8-10.8)
[2022-01-28 06:24] LABS: Anion Gap 13 (12-20); Blood Urea Nitrogen 20 mg/dL (9-16); Calcium 8.8 mg/dL (8.4-10.2); Carbon Dioxide 23 mmol/L (22-29); Chloride 108 mmol/L (96-108); Creatinine Clr Calc Pharmacy 82.5; Estimated Glomerular Filt Rate > 60; Glucose Random 93 mg/dL (60-115); Potassium 3.6 mmol/L (3.3-5.1); Sodium 140 mmol/L (135-145)
[2022-01-28 07:23] VITALS: BP 149/64; PULSE 95; RESP 18; TEMP 36.8; O2SAT 93
--- NOTE | 2022-01-28 07:26 | HE.PHANOTE ---
Vancomycin Dosing Addendum Continue with current regimen. Next trough 01/29/22 @1000.
[2022-01-28 07:38] LABS: Iron 23 mcg/dL (30-160); Percent Iron Saturation 7 % (15-50); Total Iron Binding Capacity 321 mcg/dL (228-428); Unsaturated Iron Binding 298 ug/dL
[2022-01-28] MEDS: amLODIPine Besylate 10 MG TABLET PO (07:52)
[2022-01-28] MEDS: Metoprolol Succinate ER 100 MG TAB.ER.24H PO (07:52)
[2022-01-28] MEDS: Omeprazole 20 MG CAPSULE.DR PO (07:53)
[2022-01-28] MEDS: busPIRone HCl 5 MG TABLET PO ×2 (07:53→19:59)
[2022-01-28 08:20] LABS: Folate 11.3 ng/mL (> or = 4.0); Vitamin B12 292 pg/mL (200-900)
--- NOTE | 2022-01-28 09:46 | PM.CNGS ---
History of Present Illness Consult details Consult date: 01/28/22 Reason for consult: wound care Narrative: Pleasant 66-year-old female presented to the hospital for admission per my request. We had been treating her left lower extremity for cellulitis in local wounds for a significant period of time. She had been treated as an outpatient and had p.o. antibiotics which seem to be ineffective. It was requested that she subsequently come into the emergency room and be admitted for IV antibiotic therapy. She has been feeling much better since admission. Her leg has been elevated and she reports decrease in pain. Of note she did undergo an MRI yesterday evening. Review of Systems Review of Systems: Yes all other systems are reviewed and are negative Constitutional: Constitutional: Reports no additional constitutional complaints ENT: Reports Normal hearing present Cardiovascular: Cardiovascular: Denies chest pain, Denies chest pain at rest, Denies chest pain with activity and Denies pedal edema Respiratory: Respiratory: Denies cough Gastrointestinal: Gastrointestinal: Denies abdominal pain Musculoskeletal: Musculoskeletal: Denies abnormal gait, Denies muscle cramps and Denies radiating pain into limb Integumentary/Breasts: Skin/Breast: Denies skin ulcer and Denies wounds Neurologic: Reports Normal hearing present and Denies abnormal gait Psychiatric: Psychiatric: Reports no additional psychiatric complaints PMF Past Medical History Medical History HTN (hypertension) Functional capacity: independent ambulation Social History Social History Household Members: Spouse and Family Housing: House Do you presently have visiting nurse or other home services: No Alcohol intake: never Patient Tobacco Use Status: Never used Tobacco Meds Allergies Allergy/AdvReac Type Severity Reaction Status Date / Time gabapentin Allergy Unknown nausea and Verified 01/25/22 11:14 vomiting levofloxacin Allergy Unknown nausea and Verified 01/25/22 11:14 vomiting Sulfa (Sulfonamide Allergy Unknown vomiting Verified 01/25/22 11:14 Antibiotics) sulfamethoxazole Allergy Unknown RASH Verified 01/25/22 11:14 [From BACTRIM] trimethoprim [From BACTRIM] Allergy Unknown RASH Verified 01/25/22 11:14 Active Medications: Current Medications Acetaminophen (Acetaminophen 325 Mg Tablet) 650 mg PO Q6H PRN PRN Reason: Pain, Mild (Pain Scale 1-3) Amlodipine Besylate (Amlodipine Besylate 10 Mg Tablet) 10 mg PO DAILY [facility]; Protocol Last Admin: 01/28/22 07:52 Dose: 10 mg Documented by: Buspirone HCl (Buspirone Hcl 5 Mg Tablet) 5 mg PO BID [facility] Last Admin: 01/28/22 07:53 Dose: 5 mg Documented by: Docusate Sodium (Docusate Sodium 100 Mg Capsule) 100 mg PO DAILY [facility] Last Admin: 01/28/22 07:53 Dose: Not Given Documented by: Enoxaparin Sodium (Enoxaparin Sodium 40 Mg/0.4 Ml Syringe) 40 mg SUBCUT Q24H [facility] Last Admin: 01/27/22 16:15 Dose: 40 mg Documented by: Piperacillin Sod/Tazobactam (Sod 3.375 gm/ Sodium Chloride) 50 mls @ 100 mls/hr IV Q6H [facility] Last Infusion: 01/28/22 08:51 Dose: Infused Documented by: Vancomycin HCl 1,250 mg/ (Sodium Chloride) 250 mls @ 166.667 mls/hr IV Q24H [facility] Melatonin (Melatonin 3 Mg Tablet) 6 mg PO BEDTIME PRN PRN Reason: Insomnia Metoprolol Succinate (Metoprolol Succinate Er 100 Mg Tab.Er.24h) 100 mg PO DAILY [facility]; Protocol Last Admin: 01/28/22 07:52 Dose: 100 mg Documented by: Morphine Sulfate (Morphine Sulfate 2 Mg/Ml Cartridge) 2 mg IVPUSH Q4H PRN; Protocol PRN Reason: Pain, Severe (Pain Scale 7-10) Last Admin: 01/28/22 05:05 Dose: 2 mg Documented by: Omeprazole (Omeprazole 20 Mg Capsule.Dr) 20 mg PO DAILY [facility] Last Admin: 01/28/22 07:53 Dose: 20 mg Documented by: Ondansetron HCl (Ondansetron Hcl 4 Mg/2 Ml Vial) 4 mg IVPUSH Q6H PRN PRN Reason: Nausea Last Admin: 01/27/22 18:37 Dose: 4 mg Documented by: Oxycodone HCl (Oxycodone Hcl Immed Release 5 Mg Tablet) 5 mg PO Q6H PRN PRN Reason: Pain, Moderate (Pain Scale 4-6 Pharmacy Consult (Consult Rx Perform Med Rec) 1 each MISCELLANE ONCE PRN PRN Reason: Consult order Pharmacy Consult (Consult Rx Vancomycin Dosing) 1 each MISCELLANE DAILY PRN PRN Reason: Consult order Senna (Sennosides 8.6 Mg Tablet) 17.2 mg PO BEDTIME [facility] Last Admin: 01/27/22 20:09 Dose: Not Given Documented by: Sodium Chloride (0.9 % Sodium Chloride Flush 3 Ml Syringe) 3 ml IVFLUSH QSHIFT [facility] Last Admin: 01/28/22 07:53 Dose: 3 ml Documented by: Home Medications Medication Instructions Recorded Confirmed Last Taken Type acetaminophen 500 mg tablet 1,000 mg PO Q6H PRN 01/27/22 01/27/22 01/26/22 History ibuprofen 600 mg tablet 600 mg PO Q6H PRN 01/27/22 01/27/22 01/26/22 History omeprazole 20 mg capsule,delayed 20 mg PO DAILY 01/27/22 01/27/22 01/27/22 History release Physical Exam Vital Signs: Vital Signs: Last Vital Signs Temp 98.3 F 01/28/22 07:23 Pulse 95 01/28/22 07:23 Resp 18 01/28/22 07:23 BP 149/64 H 01/28/22 07:23 Pulse Ox 93 01/28/22 07:23 BMI result Body Mass Index 34.1 Const: General: cooperative, healthy appearing and comfortable Orientation/consciousness: oriented to person, oriented to place and oriented to time HEENT: Head: Yes normal to inspection Neck: Neck: Yes normal visual inspection Carotids: no bruits Chest: Chest palpation & inspection: normal inspection of the chest Resp: Effort & Inspection: normal respiratory effort and able to speak in complete sentences Auscultation: clear to auscultation bilaterally, no crackles, no rales, no rhonchi and no wheezes Cardio: Rate: regular rate Rhythm: regular rhythm Heart sounds: S1 normal heart sound present and S2 normal heart sound present Bruits: no carotid bruits Peripheral pulses: Peripheral pulses 2+ throughout GI: Inspection: Yes normal to inspection Skin: Wounds: wounds noted ( Left calf significant superficial wounds and cellulitis) Hair: normal Neuro: General: oriented to person, oriented to place and oriented to time Cranial nerves: Yes CN's II-XII intact bilaterally and Yes Normal hearing present Cognition (Neuro): normal cognition Motor exam (neuro): 5/5 motor strength present throughout Extrem: Other: venous exam: No significant superficial varicosities or spider telangiectasias, minimal edema General: No clubbing, No cyanosis and No edema Psych: Appearance: grossly normal Mental Status: mental status grossly normal Speech and movement: Normal speech and movement present Results Labs Result diagrams: 01/28/22 05:48 01/28/22 05:48 Labs: Abnormal lab results 01/27/22 01/27/22 01/27/22 Range/Units 10:04 10:04 10:04 WBC 11.9 H (4.8-10.8) X10*3/uL RBC 3.51 L D (4.20-5.50) X10*6/uL Hgb 9.6 L (12.0-16.0) g/dl Hct 30.6 L (37.0-47.0) % MCHC (31.0-35.0) g/dl MPV (9.4-12.3) fL Neut % (Auto) 85.2 H (45-73) % Lymph % (Auto) 7.4 L (20-40) % Lymph # (Auto) 0.9 L (1.2-4.9) X10*3/uL Abs Immat Gran (auto) 0.04 H (0.00-0.03) X10*3/uL Absolute Neuts (auto) 10.1 H (2.0-8.3) x10*3/uL ESR 92 H (0-20) MM/HR BUN 17 H (9-16) mg/dL Random Glucose 120 H (60-115) mg/dL Iron (30-160) mcg/dL % Saturation (15-50) % C-Reactive Protein 12.90 H (< or = 0.50) mg/dL 01/28/22 01/28/22 Range/Units 05:48 05:48 WBC (4.8-10.8) X10*3/uL RBC 3.12 L (4.20-5.50) X10*6/uL Hgb 8.5 L (12.0-16.0) g/dl Hct 27.6 L (37.0-47.0) % MCHC 30.8 L (31.0-35.0) g/dl MPV 9.2 L (9.4-12.3) fL Neut % (Auto) (45-73) % Lymph % (Auto) (20-40) % Lymph # (Auto) (1.2-4.9) X10*3/uL Abs Immat Gran (auto) (0.00-0.03) X10*3/uL Absolute Neuts (auto) (2.0-8.3) x10*3/uL ESR (0-20) MM/HR BUN 20 H (9-16) mg/dL Random Glucose (60-115) mg/dL Iron 23 L (30-160) mcg/dL % Saturation 7 L (15-50) % C-Reactive Protein (< or = 0.50) mg/dL Short CBC 01/27/22 01/28/22 Range/Units 10:04 05:48 WBC 11.9 H 8.7 (4.8-10.8) X10*3/uL Hgb 9.6 L 8.5 L (12.0-16.0) g/dl Hct 30.6 L 27.6 L (37.0-47.0) % Plt Count 355 311 (160-400) X10*3/uL BMP 01/27/22 01/28/22 10:04 05:48 Sodium 139 140 Potassium 3.6 3.6 Chloride 106 108 Carbon Dioxide 22 23 BUN 17 H 20 H Creatinine 0.79 0.71 Calcium 9.4 D 8.8 D Liver Function 01/27/22 Range/Units 10:04 Total Bilirubin 0.6 (0.0-1.0) mg/dL AST 9 (5-31) U/L ALT 11 (0-31) U/L Alkaline Phosphatase 81 (39-117) U/L Albumin 4.1 (3.5-5.0) g/dL All other labs normal. Assessment and Plan (1) Leg wound, left: Status: Acute Plan in short patient has left lower extremity cellulitis and nonhealing ulcers. MRI written report and images were reviewed and has shown to be negative for any osteomyelitis. In addition I did review her previous venous insufficiency testing from 11/16/2021 which had prior vein ablation and demonstrates no significant reflux. At the current time would recommend local wound care leg elevation evaluation by Infectious Disease. It is unclear what the etiology of such cellulitis and pain and discomfort is. I will write for local wound care orders. Will continue to follow with you. Thank you for allowing us to assist in her care. Procedures Date of Service Date of Service: 01/28/22
--- NOTE | 2022-01-28 10:23 | P.PNIM_ITS ---
Subjective Subjective Date of Service: 01/28/22 Interval History: Seen and examined this morning Had discomfort during MRI due to moving around, became nauseated and vomited This morning pain is under better control and her nausea has resolved She denies any fever or chills Review of Systems Review of Systems: Yes all other systems are reviewed and are negative Constitutional Constitutional: Denies chills and Denies fever(s) Cardiovascular Cardiovascular: Denies chest pain, Denies palpitations and Denies dyspnea Respiratory Respiratory: Denies cough and Denies dyspnea Gastrointestinal Gastrointestinal: Denies abdominal pain, Denies constipation, Denies diarrhea, Denies nausea and Denies vomiting Endocrine Endocrine: Denies palpitations Physical Exam Vital Signs: Vital Signs: Last Vital Signs Temp 98.3 F 01/28/22 07:23 Pulse 95 01/28/22 07:23 Resp 18 01/28/22 07:23 BP 149/64 H 01/28/22 07:23 Pulse Ox 93 01/28/22 07:23 BMI result Body Mass Index 34.1 Const: Other: appears uncomfortable General: alert and awake Nutritional Appearance: overweight Orientation/consciousness: patient oriented x3 Resp: Effort & Inspection: normal respiratory effort and able to speak in complete sentences Auscultation: clear to auscultation bilaterally Cardio: Rate: regular rate Heart sounds: S1 normal heart sound present and S2 normal heart sound present GI: Inspection: No Abdominal wall edema Palpation (GI): Soft to palpation and nontender Skin: Other: similar in appearance to yesterday Neuro: General: patient oriented x3 Extrem: General: Yes no pedal edema Objective Data Active Medications Acetaminophen (Acetaminophen 325 Mg Tablet) 650 mg PO Q6H PRN PRN Reason: Pain, Mild (Pain Scale 1-3) Amlodipine Besylate (Amlodipine Besylate 10 Mg Tablet) 10 mg PO DAILY [facility]; Protocol Last Admin: 01/28/22 07:52 Dose: 10 mg Documented by: ASHLI Buspirone HCl (Buspirone Hcl 5 Mg Tablet) 5 mg PO BID [facility] Last Admin: 01/28/22 07:53 Dose: 5 mg Documented by: ASHLI Docusate Sodium (Docusate Sodium 100 Mg Capsule) 100 mg PO DAILY [facility] Last Admin: 01/28/22 07:53 Dose: Not Given Documented by: ASHLI Non-Admin Reason: Patient Refused Enoxaparin Sodium (Enoxaparin Sodium 40 Mg/0.4 Ml Syringe) 40 mg SUBCUT Q24H [facility] Last Admin: 01/27/22 16:15 Dose: 40 mg Documented by: EMIL Piperacillin Sod/Tazobactam (Sod 3.375 gm/ Sodium Chloride) 50 mls @ 100 mls/hr IV Q6H [facility] Last Infusion: 01/28/22 08:51 Dose: 0 mls/hr Documented by: ASHLI Vancomycin HCl 1,250 mg/ (Sodium Chloride) 250 mls @ 166.667 mls/hr IV Q24H [facility] Melatonin (Melatonin 3 Mg Tablet) 6 mg PO BEDTIME PRN PRN Reason: Insomnia Metoprolol Succinate (Metoprolol Succinate Er 100 Mg Tab.Er.24h) 100 mg PO DAILY [facility]; Protocol Last Admin: 01/28/22 07:52 Dose: 100 mg Documented by: ASHLI Morphine Sulfate (Morphine Sulfate 2 Mg/Ml Cartridge) 2 mg IVPUSH Q4H PRN; Protocol PRN Reason: Pain, Severe (Pain Scale 7-10) Last Admin: 01/28/22 05:05 Dose: 2 mg Documented by: RAYMOND Omeprazole (Omeprazole 20 Mg Capsule.Dr) 20 mg PO DAILY [facility] Last Admin: 01/28/22 07:53 Dose: 20 mg Documented by: ASHLI Ondansetron HCl (Ondansetron Hcl 4 Mg/2 Ml Vial) 4 mg IVPUSH Q6H PRN PRN Reason: Nausea Last Admin: 01/27/22 18:37 Dose: 4 mg Documented by: ASHLI Oxycodone HCl (Oxycodone Hcl Immed Release 5 Mg Tablet) 5 mg PO Q6H PRN PRN Reason: Pain, Moderate (Pain Scale 4-6 Pharmacy Consult (Consult Rx Perform Med Rec) 1 each MISCELLANE ONCE PRN PRN Reason: Consult order Pharmacy Consult (Consult Rx Vancomycin Dosing) 1 each MISCELLANE DAILY PRN PRN Reason: Consult order Senna (Sennosides 8.6 Mg Tablet) 17.2 mg PO BEDTIME [facility] Last Admin: 01/27/22 20:09 Dose: Not Given Documented by: RAYMOND Non-Admin Reason: Patient Refused Sodium Chloride (0.9 % Sodium Chloride Flush 3 Ml Syringe) 3 ml IVFLUSH QSHIFT [facility] Last Admin: 01/28/22 07:53 Dose: 3 ml Documented by: ASHLI Labs CBC & Chem 7: 01/28/22 05:48 01/28/22 05:48 Labs: Laboratory Results - last 24 hr 01/27/22 01/27/22 01/27/22 10:04 10:04 10:04 MCV 87.2 MCH 27.4 MCHC 31.4 RDW 14.5 Plt Count 355 MPV 9.5 Immature Gran % (Auto) 0.3 Neut % (Auto) 85.2 H Lymph % (Auto) 7.4 L [place] % (Auto) 6.7 Eos % (Auto) 0.3 Baso % (Auto) 0.1 Lymph # (Auto) 0.9 L [place] # (Auto) 0.8 Eos # (Auto) 0.0 Baso # (Auto) 0.0 Abs Immat Gran (auto) 0.04 H Absolute Neuts (auto) 10.1 H Absolute Nucleated RBC 0.000 Nucleated RBC % (auto) 0.0 ESR 92 H Anion Gap 15 Estim Creat Clear Calc 74.1 Estimated GFR > 60 Random Glucose 120 H Calcium 9.4 D Iron TIBC % Saturation Unsat Iron Binding Total Bilirubin 0.6 AST 9 ALT 11 Alkaline Phosphatase 81 C-Reactive Protein 12.90 H C-React Prot High Sens Total Protein 6.8 Albumin 4.1 Vitamin B12 Folate COVID-19 ([facility]) COVID-19 Clin Com 01/27/22 01/27/22 01/28/22 10:04 11:39 05:48 MCV 88.5 MCH 27.2 MCHC 30.8 L RDW 14.6 Plt Count 311 MPV 9.2 L Immature Gran % (Auto) Neut % (Auto) Lymph % (Auto) [place] % (Auto) Eos % (Auto) Baso % (Auto) Lymph # (Auto) [place] # (Auto) Eos # (Auto) Baso # (Auto) Abs Immat Gran (auto) Absolute Neuts (auto) Absolute Nucleated RBC 0.000 Nucleated RBC % (auto) 0.0 ESR Anion Gap Estim Creat Clear Calc Estimated GFR Random Glucose Calcium Iron TIBC % Saturation Unsat Iron Binding Total Bilirubin AST ALT Alkaline Phosphatase C-Reactive Protein C-React Prot High Sens Cancelled Total Protein Albumin Vitamin B12 Folate COVID-19 ([facility]) Negative COVID-19 Clin Com See Note 01/28/22 01/28/22 05:48 05:48 MCV MCH MCHC RDW Plt Count MPV Immature Gran % (Auto) Neut % (Auto) Lymph % (Auto) [place] % (Auto) Eos % (Auto) Baso % (Auto) Lymph # (Auto) [place] # (Auto) Eos # (Auto) Baso # (Auto) Abs Immat Gran (auto) Absolute Neuts (auto) Absolute Nucleated RBC Nucleated RBC % (auto) ESR Anion Gap 13 Estim Creat Clear Calc 82.5 Estimated GFR > 60 Random Glucose 93 Calcium 8.8 D Iron 23 L TIBC 321 % Saturation 7 L Unsat Iron Binding 298 Total Bilirubin AST ALT Alkaline Phosphatase C-Reactive Protein C-React Prot High Sens Total Protein Albumin Vitamin B12 292 Folate 11.3 COVID-19 ([facility]) COVID-19 Clin Com Assessment and Plan (1) Cellulitis: Status: Acute (2) Leg wound, left: Status: Acute (3) Venous insufficiency: Status: Acute Plan This is a 66-year-old female with history of insufficiency, hypertension, nonhealing left leg wound for several months sent to the emergency department by vascular surgery Nonhealing left leg ulcer/cellulitis r/t venous insufficiency Circumferential erythema from ankle to knee with multiple areas of ulceration No evidence of sepsis at this time. MRI negative for osteo -IV vancomycin and zosyn -ID consult pending -vascular consult pending -pain control -continue local wound care Acute normocytic anemia No overt blood loss noted CBC trending down Will start anemia workup, B12, folate, iron studies, stool occult pending follow CBC Hypertension Continue home Norvasc, metoprolol GERD Continue omeprazole Mood Continue buspirone DVT prophylaxis-Lovenox Code status-full code HCP - , Chang Attending- Dr. lange Patient requires ongoing inpatient stay due to severe leg wound requiring IV antibiotics, Infectious Disease consultation, pain control requiring IV narcotics Quality Stroke Does the patient have a stroke diagnosis?: No VTE Prior VTE?: No VTE Risk Level:: Medical - moderate - high VTE Device Contraindication: Treatment Not Indicated VTE Drug Contraindication: N/A - Med Ordered
--- NOTE | 2022-01-28 10:35 | MHC.CLN ---
NUTRITION PATIENT ADMITTED WITH NON HEALING VENOUS ULCER TO LEFT LOWER LEG. RECEIVING PAIN MEDICATION AND IV ANTIBIOTICS. DIET=REGULAR. NO ADDITIONAL NUTRITION INTERVENTIONS AT THIS TIME.
[2022-01-28] MEDS: vancomycin HCL 1,250 MG in 0.9 % Sodium Chloride 250 ML 166.67 MG IV (12:32)
[2022-01-28] MEDS: Enoxaparin Sodium 40 MG/0.4 ML SYRINGE SUBCUT (14:12)
[2022-01-28] MEDS: oxyCODONE HCl Immed Release 5 MG TABLET PO ×2 (14:26→19:58)
[2022-01-28 15:56] VITALS: BP 148/60; PULSE 85; RESP 18; TEMP 37.1; O2SAT 93
--- NOTE | 2022-01-28 16:24 | MHC.CM.PN ---
PLAN IS FOR 2 MORE DAYS OF IV ABX. ID CONSULT FOR DC PLANNING, WELL VASCULAR CONSULT
[2022-01-28] MEDS: Acetaminophen 325 MG TABLET 650 MG PO (18:49)
[2022-01-28] MEDS: Sennosides 8.6 MG TABLET 17.2 MG PO (19:58)
--- NOTE | 2022-01-28 22:32 | P.CNID_ITS ---
History of Present Illness Data of Consult Service Date: 01/28/22 Requesting physician: Krista Atkins Primary Care Provider: CRISTIN Gonsalez HPI Reason for consult: left leg ulcer She presents with one week failure to improve LLE redness. She has no fever or chills. She is not bacteremic. Review of Systems Review of Systems: Yes all other systems are reviewed and are negative [facility] Past Medical History Medical History HTN (hypertension) Venous insufficiency Functional capacity: independent ambulation Family History Family history: reviewed and not pertinent Social History Social History Household Members: Spouse and Family Housing: House Do you presently have visiting nurse or other home services: No Alcohol intake: never Patient Tobacco Use Status: Never used Tobacco service: No Current occupational status: retired Meds Allergies Allergy/AdvReac Type Severity Reaction Status Date / Time gabapentin Allergy Unknown nausea and Verified 02/24/22 13:08 vomiting levofloxacin Allergy Unknown nausea and Verified 02/24/22 13:08 vomiting Sulfa (Sulfonamide Allergy Unknown vomiting Verified 02/24/22 13:08 Antibiotics) sulfamethoxazole Allergy Unknown RASH Verified 02/24/22 13:08 [From BACTRIM] trimethoprim [From BACTRIM] Allergy Unknown RASH Verified 02/24/22 13:08 Active Medications: Current Medications Acetaminophen (Acetaminophen 325 Mg Tablet) 650 mg PO Q6H PRN PRN Reason: Pain, Mild (Pain Scale 1-3) Last Admin: 01/28/22 18:49 Dose: 650 mg Documented by: Amlodipine Besylate (Amlodipine Besylate 10 Mg Tablet) 10 mg PO DAILY [facility] BEDS AT [facility]; Protocol Last Admin: 01/28/22 07:52 Dose: 10 mg Documented by: Buspirone HCl (Buspirone Hcl 5 Mg Tablet) 5 mg PO BID [facility] 234 BEDS AT THE [facility] Last Admin: 01/28/22 19:59 Dose: 5 mg Documented by: Docusate Sodium (Docusate Sodium 100 Mg Capsule) 100 mg PO DAILY [facility] 234 BEDS AT THE [facility] Last Admin: 01/28/22 07:53 Dose: Not Given Documented by: Enoxaparin Sodium (Enoxaparin Sodium 40 Mg/0.4 Ml Syringe) 40 mg SUBCUT Q24H [facility]CLUDE 234 BEDS AT THE [facility] Last Admin: 01/28/22 14:12 Dose: 40 mg Documented by: Piperacillin Sod/Tazobactam (Sod 3.375 gm/ Sodium Chloride) 50 mls @ 100 mls/hr IV Q6H [facility] 234 BEDS AT THE [facility] Last Infusion: 01/28/22 21:30 Dose: Infused Documented by: Melatonin (Melatonin 3 Mg Tablet) 6 mg PO BEDTIME PRN PRN Reason: Insomnia Metoprolol Succinate (Metoprolol Succinate Er 100 Mg Tab.Er.24h) 100 mg PO DAILY [facility] 234 BEDS AT [facility]; Protocol Last Admin: 01/28/22 07:52 Dose: 100 mg Documented by: Morphine Sulfate (Morphine Sulfate 2 Mg/Ml Cartridge) 2 mg IVPUSH Q4H PRN; Protocol PRN Reason: Pain, Severe (Pain Scale 7-10) Last Admin: 01/28/22 18:16 Dose: 2 mg Documented by: Omeprazole (Omeprazole 20 Mg Capsule.Dr) 20 mg PO DAILY [facility] 234 BEDS AT [facility] Last Admin: 01/28/22 07:53 Dose: 20 mg Documented by: Ondansetron HCl (Ondansetron Hcl 4 Mg/2 Ml Vial) 4 mg IVPUSH Q6H PRN PRN Reason: Nausea Last Admin: 01/27/22 18:37 Dose: 4 mg Documented by: Oxycodone HCl (Oxycodone Hcl Immed Release 5 Mg Tablet) 5 mg PO Q6H PRN PRN Reason: Pain, Moderate (Pain Scale 4-6 Last Admin: 01/28/22 19:58 Dose: 5 mg Documented by: Pharmacy Consult (Consult Rx Perform Med Rec) 1 each MISCELLANE ONCE PRN PRN Reason: Consult order Pharmacy Consult (Consult Rx Vancomycin Dosing) 1 each MISCELLANE DAILY PRN PRN Reason: Consult order Senna (Sennosides 8.6 Mg Tablet) 17.2 mg PO BEDTIME [facility]S [facility]CLUDE 234 BEDS AT [facility] Last Admin: 01/28/22 19:58 Dose: 17.2 mg Documented by: Sodium Chloride (0.9 % Sodium Chloride Flush 3 Ml Syringe) 3 ml IVFLUSH QSHIFT COUNTS INCLUDE 234 BEDS AT THE [facility] Last Admin: 01/28/22 16:23 Dose: 3 ml Documented by: Home Medications Medication Instructions Recorded Confirmed Last Taken Type acetaminophen 500 mg tablet 1,000 mg PO Q6H PRN 01/27/22 01/27/22 01/26/22 History ibuprofen 600 mg tablet 600 mg PO Q6H PRN 01/27/22 01/27/22 01/26/22 History omeprazole 20 mg capsule,delayed 20 mg PO DAILY 01/27/22 01/27/22 01/27/22 History release Physical Exam Vital Signs: Vital Signs: Last Vital Signs Temp 98.8 F 01/28/22 15:56 Pulse 85 01/28/22 15:56 Resp 18 01/28/22 15:56 BP 148/60 H 01/28/22 15:56 Pulse Ox 93 01/28/22 15:56 BMI result Body Mass Index 34.1 Const: General: cooperative HEENT: Head: Yes normal to inspection Resp: Effort & Inspection: normal respiratory effort Cardio: Rate: regular rate Rhythm: regular rhythm GI: Palpation (GI): Soft to palpation and nontender Skin: General skin exam: no rashes or lesions noted Extrem: Other: LLE erythema laterally Results Labs CBC & Chem 7: 01/30/22 03:22 01/30/22 03:22 Labs: Short CBC 01/28/22 Range/Units 05:48 WBC 8.7 (4.8-10.8) X10*3/uL Hgb 8.5 L (12.0-16.0) g/dl Hct 27.6 L (37.0-47.0) % Plt Count 311 (160-400) X10*3/uL BMP 01/28/22 05:48 Sodium 140 Potassium 3.6 Chloride 108 Carbon Dioxide 23 BUN 20 H Creatinine 0.71 Calcium 8.8 D Microbiology Microbiology Results: Microbiology 01/27/22 10:15 Blood - Venous Blood Culture - Preliminary No growth after 24 hours. 01/27/22 10:04 Blood - Venous Blood Culture - Preliminary No growth after 24 hours. Assessment and Plan (1) Leg wound, left: Status: Acute Pseudomonas likely cause of infection (2) Cellulitis: Status: Resolved Plan IV Cefepime or Zosyn until improved Cannot give Levaquinr until better
[2022-01-28 23:25] VITALS: BP 148/69; PULSE 83; RESP 18; TEMP 36.3; O2SAT 96
[2022-01-29] MEDS: 0.9 % Sodium Chloride Flush 3 ML SYRINGE IVFLUSH ×2 (00:11→15:38)
[2022-01-29] MEDS: Piperacillin Sodium/Tazobactam 3.375 GM in 0.9 % Sodium Chloride 50 ML IV ×4 (01:56→19:51)
[2022-01-29] MEDS: Morphine Sulfate 2 MG/ML CARTRIDGE IVPUSH ×4 (02:22→18:26)
[2022-01-29 07:36] VITALS: BP 150/79; PULSE 89; RESP 20; TEMP 36.5; O2SAT 95
[2022-01-29] MEDS: Omeprazole 20 MG CAPSULE.DR PO (07:39)
[2022-01-29] MEDS: Metoprolol Succinate ER 100 MG TAB.ER.24H PO (07:39)
[2022-01-29] MEDS: Docusate Sodium 100 MG CAPSULE PO (07:39)
[2022-01-29] MEDS: busPIRone HCl 5 MG TABLET PO ×2 (07:39→19:51)
[2022-01-29] MEDS: amLODIPine Besylate 10 MG TABLET PO (07:39)
[2022-01-29 10:36] LABS: Hematocrit 28.8 % (37.0-47.0); Hemoglobin 8.7 g/dl (12.0-16.0); Mean Corpuscular HGB Conc 30.2 g/dl (31.0-35.0); Mean Corpuscular Hemoglobin 27.4 pg (27.0-33.0); Mean Corpuscular Volume 90.6 fL (80.0-98.0); Mean Platelet Volume 9.7 fL (9.4-12.3); Platelet Count 312 X10*3/uL (160-400); Red Blood Count 3.18 X10*6/uL (4.20-5.50); Red Cell Distribution Width 14.4 % (11.0-16.0); White Blood Count 9.8 X10*3/uL (4.8-10.8)
[2022-01-29 10:51] LABS: Anion Gap 14 (12-20); Blood Urea Nitrogen 25 mg/dL (9-16); Calcium 8.6 mg/dL (8.4-10.2); Carbon Dioxide 24 mmol/L (22-29); Chloride 109 mmol/L (96-108); Creatinine Clr Calc Pharmacy 44.7; Estimated Glomerular Filt Rate 40; Glucose Random 155 mg/dL (60-115); Potassium 3.5 mmol/L (3.3-5.1); Sodium 143 mmol/L (135-145)
[2022-01-29 10:59] LABS: Vancomycin Random 9.9 mcg/mL (15-20)
--- NOTE | 2022-01-29 11:37 | P.PNIM_ITS ---
Subjective Subjective Date of Service: 01/29/22 <ASHIA Vale - Last Filed: 01/29/22 11:50> 01/30/22 <Brooks White DO - Last Filed: 01/30/22 07:59> Interval History: Seen and examined this morning Follow-up for left lower extremity cellulitis Pain under better control at rest, still with significant tenderness with dressing changes. Still requiring frequent doses of IV narcotics to maintain adequate pain control Denies any fever, chills <ASHIA Vale - Last Filed: 01/29/22 11:50> Review of Systems Review of Systems: Yes all other systems are reviewed and are negative <ASHIA Vale - Last Filed: 01/29/22 11:50> Constitutional Constitutional: Denies chills and Denies fever(s) <ASHIA Vale - Last Filed: 01/29/22 11:50> Cardiovascular Cardiovascular: Denies chest pain, Denies palpitations and Denies dyspnea <ASHIA Vale - Last Filed: 01/29/22 11:50> Respiratory Respiratory: Denies cough and Denies dyspnea <ASHIA Vale - Last Filed: 01/29/22 11:50> Gastrointestinal Gastrointestinal: Denies abdominal pain, Denies nausea and Denies vomiting <ASHIA Vale - Last Filed: 01/29/22 11:50> Endocrine Endocrine: Denies palpitations <ASHIA Vale - Last Filed: 01/29/22 11:50> Physical Exam Vital Signs: Vital Signs: Last Vital Signs Temp 97.7 F 01/29/22 07:36 Pulse 89 01/29/22 07:36 Resp 20 01/29/22 07:36 BP 150/79 H 01/29/22 07:36 Pulse Ox 95 01/29/22 07:36 BMI result Body Mass Index 34.1 <ASHIA Vale Last Filed: 01/29/22 11:50> Const: General: alert and awake <ASHIA Vale - Last Filed: 01/29/22 11:50> Nutritional Appearance: overweight <ASHIA Vale - Last Filed: 01/29/22 11:50> Orientation/consciousness: patient oriented x3 <ASHIA Vale - Last Filed: 01/29/22 11:50> Resp: Effort & Inspection: normal respiratory effort and able to speak in complete sentences <ASHIA Vale - Last Filed: 01/29/22 11:50> Auscultation: clear to auscultation bilaterally <ASHIA Vale - Last Filed: 01/29/22 11:50> Cardio: Rate: regular rate <ASHIA Vale - Last Filed: 01/29/22 11:50> Heart sounds: S1 normal heart sound present and S2 normal heart sound present <ASHIA Vale - Last Filed: 01/29/22 11:50> GI: Inspection: No Abdominal wall edema <ASHIA Vale - Last Filed: 01/29/22 11:50> Palpation (GI): Soft to palpation and nontender <ASHIA Vale - Last Filed: 01/29/22 11:50> Skin: Other: <ASHIA Vale - Last Filed: 01/29/22 11:50> Neuro: General: patient oriented x3 <ASHIA Vale - Last Filed: 01/29/22 11:50> Extrem: General: Yes no pedal edema <ASHIA Vale - Last Filed: 01/29/22 11:50> Objective Data Active Medications Acetaminophen (Acetaminophen 325 Mg Tablet) 650 mg PO Q6H PRN PRN Reason: Pain, Mild (Pain Scale 1-3) Last Admin: 01/28/22 18:49 Dose: 650 mg Documented by: OLIVIER Amlodipine Besylate (Amlodipine Besylate 10 Mg Tablet) 10 mg PO DAILY [facility]; Protocol Last Admin: 01/29/22 07:39 Dose: 10 mg Documented by: DINH Buspirone HCl (Buspirone Hcl 5 Mg Tablet) 5 mg PO BID [facility] Last Admin: 01/29/22 07:39 Dose: 5 mg Documented by: DINH Docusate Sodium (Docusate Sodium 100 Mg Capsule) 100 mg PO DAILY [facility] Last Admin: 01/29/22 07:39 Dose: 100 mg Documented by: DINH Enoxaparin Sodium (Enoxaparin Sodium 40 Mg/0.4 Ml Syringe) 40 mg SUBCUT Q24H [facility] Last Admin: 01/28/22 14:12 Dose: 40 mg Documented by: ASHLI Piperacillin Sod/Tazobactam (Sod 3.375 gm/ Sodium Chloride) 50 mls @ 100 mls/hr IV Q6H [facility] Last Infusion: 01/29/22 08:47 Dose: 0 mls/hr Documented by: SUNNI Melatonin (Melatonin 3 Mg Tablet) 6 mg PO BEDTIME PRN PRN Reason: Insomnia Metoprolol Succinate (Metoprolol Succinate Er 100 Mg Tab.Er.24h) 100 mg PO DAILY [facility]; Protocol Last Admin: 01/29/22 07:39 Dose: 100 mg Documented by: DINH Morphine Sulfate (Morphine Sulfate 2 Mg/Ml Cartridge) 2 mg IVPUSH Q4H PRN; Protocol PRN Reason: Pain, Severe (Pain Scale 7-10) Last Admin: 01/29/22 09:36 Dose: 2 mg Documented by: SUNNI Omeprazole (Omeprazole 20 Mg Capsule.Dr) 20 mg PO DAILY [facility] Last Admin: 01/29/22 07:39 Dose: 20 mg Documented by: DINH Ondansetron HCl (Ondansetron Hcl 4 Mg/2 Ml Vial) 4 mg IVPUSH Q6H PRN PRN Reason: Nausea Last Admin: 01/27/22 18:37 Dose: 4 mg Documented by: ASHLI Oxycodone HCl (Oxycodone Hcl Immed Release 5 Mg Tablet) 5 mg PO Q6H PRN PRN Reason: Pain, Moderate (Pain Scale 4-6 Last Admin: 01/28/22 19:58 Dose: 5 mg Documented by: OLIVIER Pharmacy Consult (Consult Rx Perform Med Rec) 1 each MISCELLANE ONCE PRN PRN Reason: Consult order Pharmacy Consult (Consult Rx Vancomycin Dosing) 1 each MISCELLANE DAILY PRN PRN Reason: Consult order Senna (Sennosides 8.6 Mg Tablet) 17.2 mg PO BEDTIME [facility] Last Admin: 01/28/22 19:58 Dose: 17.2 mg Documented by: OLIVIER Sodium Chloride (0.9 % Sodium Chloride Flush 3 Ml Syringe) 3 ml IVFLUSH QSHIFT [facility] Last Admin: 01/29/22 07:39 Dose: Not Given Documented by: DINH Non-Admin Reason: IV Running <ASHIA Vale - Last Filed: 01/29/22 11:50> Labs CBC & Chem 7: : 01/30/22 03:22 01/30/22 03:22 <ASHIA Vale - Last Filed: 01/29/22 11:50> Labs: Laboratory Results - last 24 hr 01/29/22 01/29/22 01/29/22 10:30 10:30 10:30 MCV 90.6 MCH 27.4 MCHC 30.2 L RDW 14.4 Plt Count 312 MPV 9.7 Absolute Nucleated RBC 0.000 Nucleated RBC % (auto) 0.0 Anion Gap 14 Estim Creat Clear Calc 44.7 Estimated GFR 40 Random Glucose 155 H Calcium 8.6 Random Vancomycin 9.9 L <ASHIA Vale - Last Filed: 01/29/22 11:50> Microbiology Microbiology Results: Microbiology 01/27/22 10:15 Blood Culture - Preliminary Blood - Venous No growth after 24 hours. 01/27/22 10:04 Blood Culture - Preliminary Blood - Venous No growth after 24 hours. <ASHIA Vale - Last Filed: 01/29/22 11:50> Assessment and Plan (1) Cellulitis: Status: Acute <ASHIA Vale - Last Filed: 01/29/22 11:50> (2) Leg wound, left: Status: Acute <ASHIA Vale - Last Filed: 01/29/22 11:50> (3) Venous insufficiency: Status: Acute <ASHIA Vale - Last Filed: 01/29/22 11:50> Plan This is a 66-year-old female with history of insufficiency, hypertension, nonhealing left leg wound for several months sent to the emergency department by vascular surgery Nonhealing left leg ulcer/cellulitis r/t venous insufficiency Circumferential erythema from ankle to knee with multiple areas of shallow ulceration No evidence of sepsis at this time. MRI negative for osteo Initially treated with IV vanco and zosyn; Seen by ID, vanco d/c (outpt would culture growing pseudomonas) vascular surgery following, no further imaging studies/vascular intervention required at this time. BCx negative to date -continue pain control -continue local wound care/daily dressing changes Acute normocytic anemia No overt blood loss noted B12, folate wnl iron studies c/w iron deficiency, stool occult pending H/H stable follow CBC Hypertension Continue home Norvasc, metoprolol GERD Continue omeprazole Mood Continue buspirone DVT prophylaxis-Lovenox Code status-full code HCP - , Chang Attending- Dr. White Patient requires ongoing inpatient stay due to severe leg wound requiring IV antibiotics, pain control requiring IV narcotics <ASHIA Vale - Last Filed: 01/29/22 11:50> This is a 66-year-old female with history of insufficiency, hypertension, nonhealing left leg wound for several months sent to the emergency department by vascular surgery Nonhealing left leg ulcer/cellulitis r/t venous insufficiency Circumferential erythema from ankle to knee with multiple areas of shallow ulceration No evidence of sepsis at this time. MRI negative for osteo Initially treated with IV vanco and zosyn; Seen by denia HIDALGOo d/c (outpt would culture growing pseudomonas) vascular surgery following, no further imaging studies/vascular intervention required at this time. BCx negative to date -continue pain control -continue local wound care/daily dressing changes Acute normocytic anemia No overt blood loss noted B12, folate wnl iron studies c/w iron deficiency, stool occult pending H/H stable follow CBC Hypertension Continue home Norvasc, metoprolol GERD Continue omeprazole Mood Continue buspirone DVT prophylaxis-Lovenox Code status-full code HCP - , Chang Attending- Dr. White Chart reviewed; patient examined. Agree with history and physical and plan as outlined by Ms. Atkins. Patient requires ongoing inpatient stay due to severe leg wound requiring IV antibiotics, pain control requiring IV narcotics <Brooks White DO - Last Filed: 01/30/22 07:59> Quality Stroke Does the patient have a stroke diagnosis?: No <ASHIA Vale - Last Filed: 01/29/22 11:50> VTE Prior VTE?: No <ASHIA Vale - Last Filed: 01/29/22 11:50> VTE Risk Level:: Medical - moderate - high <ASHIA Vale - Last Filed: 01/29/22 11:50> VTE Device Contraindication: Treatment Not Indicated <ASHIA Vale - Last Filed: 01/29/22 11:50> VTE Drug Contraindication: N/A - Med Ordered <ASHIA Vale - Last Filed: 01/29/22 11:50>
[2022-01-29] MEDS: oxyCODONE HCl Immed Release 5 MG TABLET PO ×2 (12:08→19:58)
[2022-01-29] MEDS: Enoxaparin Sodium 40 MG/0.4 ML SYRINGE SUBCUT (14:15)
[2022-01-29 15:31] VITALS: BP 183/83; PULSE 88; RESP 18; TEMP 36.8; O2SAT 94
[2022-01-29] MEDS: Acetaminophen 325 MG TABLET 650 MG PO (15:34)
--- NOTE | 2022-01-29 16:37 | MHC.CM.PN ---
PT REPORTS SHE LIVES WITH HER WHO WAS AT BEDSIDE TP REPORTS SHE IS INDEPENDENT, HAD NO DME AND NO SERVICES TIRE [employer] PT DECLINES TO COMPLETE A HCP PT CONFIRMS HER PCP IS [facility] PT REPORTS SHE IS VACCINATED X 3 IMM DELIVERED DC HOME VS HOME WITH [facility] PT PREFERS REFERRALS TO 1. [facility] OR 2. [facility] TO TRANSPORT
[2022-01-29 18:27] VITALS: BP 157/64; PULSE 81; RESP 20
[2022-01-29] MEDS: Sennosides 8.6 MG TABLET 17.2 MG PO (19:51)
[2022-01-29 23:50] VITALS: BP 175/78; PULSE 88; RESP 14; TEMP 36.6; O2SAT 95
[2022-01-30] MEDS: 0.9 % Sodium Chloride Flush 3 ML SYRINGE IVFLUSH ×3 (00:12→15:19)
[2022-01-30] MEDS: Piperacillin Sodium/Tazobactam 3.375 GM in 0.9 % Sodium Chloride 50 ML IV ×4 (02:26→20:41)
[2022-01-30 04:19] LABS: Hematocrit 28.8 % (37.0-47.0); Hemoglobin 8.8 g/dl (12.0-16.0); Mean Corpuscular HGB Conc 30.6 g/dl (31.0-35.0); Mean Corpuscular Hemoglobin 27.2 pg (27.0-33.0); Mean Corpuscular Volume 89.2 fL (80.0-98.0); Mean Platelet Volume 9.8 fL (9.4-12.3); Platelet Count 292 X10*3/uL (160-400); Red Blood Count 3.23 X10*6/uL (4.20-5.50); Red Cell Distribution Width 14.1 % (11.0-16.0); White Blood Count 8.8 X10*3/uL (4.8-10.8)
[2022-01-30 04:48] LABS: Anion Gap 16 (12-20); Blood Urea Nitrogen 24 mg/dL (9-16); Calcium 8.9 mg/dL (8.4-10.2); Carbon Dioxide 23 mmol/L (22-29); Chloride 108 mmol/L (96-108); Creatinine Clr Calc Pharmacy 54.2; Estimated Glomerular Filt Rate 50; Glucose Random 104 mg/dL (60-115); Potassium 3.5 mmol/L (3.3-5.1); Sodium 143 mmol/L (135-145)
[2022-01-30 07:34] VITALS: BP 172/74; PULSE 86; RESP 18; TEMP 36.6; O2SAT 95
[2022-01-30] MEDS: Morphine Sulfate 2 MG/ML CARTRIDGE IVPUSH ×3 (08:14→20:42)
[2022-01-30] MEDS: Metoprolol Succinate ER 100 MG TAB.ER.24H PO (08:15)
[2022-01-30] MEDS: Docusate Sodium 100 MG CAPSULE PO (08:15)
[2022-01-30] MEDS: Omeprazole 20 MG CAPSULE.DR PO (08:15)
[2022-01-30] MEDS: busPIRone HCl 5 MG TABLET PO ×2 (08:15→20:46)
[2022-01-30] MEDS: amLODIPine Besylate 10 MG TABLET PO (08:16)
[2022-01-30] MEDS: Acetaminophen 325 MG TABLET 650 MG PO (11:27)
[2022-01-30] MEDS: oxyCODONE HCl Immed Release 5 MG TABLET PO ×2 (11:27→17:50)
--- NOTE | 2022-01-30 11:28 | P.PNIM_ITS ---
Subjective Subjective Date of Service: 01/30/22 <ASHIA Vale - Last Filed: 01/30/22 11:33> 01/30/22 <Brooks White DO - Last Filed: 01/30/22 15:07> Interval History: Seen and examined this morning Erythema of left lower extremity slowly improving Still with significant pain especially with dressing changes, movement of left leg; still requiring frequent doses of IV narcotics Denies fever, chills <ASHIA Vale - Last Filed: 01/30/22 11:33> Review of Systems Review of Systems: Yes all other systems are reviewed and are negative <ASHIA Vale - Last Filed: 01/30/22 11:33> Constitutional Constitutional: Denies chills and Denies fever(s) <ASHIA Vale - Last Filed: 01/30/22 11:33> Cardiovascular Cardiovascular: Denies chest pain, Denies palpitations and Denies dyspnea <ASHIA Vale - Last Filed: 01/30/22 11:33> Respiratory Respiratory: Denies cough and Denies dyspnea <ASHIA Vale - Last Filed: 01/30/22 11:33> Gastrointestinal Gastrointestinal: Denies abdominal pain, Reports nausea and Denies vomiting <ASHIA Owens - Last Filed: 01/30/22 11:33> Endocrine Endocrine: Denies palpitations <ASHIA Vale - Last Filed: 01/30/22 11:33> Physical Exam Vital Signs: Vital Signs: Last Vital Signs Temp 97.9 F 01/30/22 07:34 Pulse 86 01/30/22 07:34 Resp 18 01/30/22 07:34 BP 172/74 H 01/30/22 07:34 Pulse Ox 95 01/30/22 07:34 BMI result Body Mass Index 34.1 <ASHIA Vale - Last Filed: 01/30/22 11:33> Const: Other: appears uncomfortable <ASHIA Vale - Last Filed: 01/30/22 11:33> General: alert and awake <ASHIA Vale - Last Filed: 01/30/22 11:33> Nutritional Appearance: overweight <ASHIA Vale - Last Filed: 01/30/22 11:33> Orientation/consciousness: patient oriented x3 <ASHIA Vale - Last Filed: 01/30/22 11:33> Resp: Effort & Inspection: normal respiratory effort and able to speak in complete sentences <ASHIA aVle - Last Filed: 01/30/22 11:33> Auscultation: clear to auscultation bilaterally <ASHIA Vale - Last Filed: 01/30/22 11:33> Cardio: Rate: regular rate <ASHIA Vale - Last Filed: 01/30/22 11:33> Heart sounds: S1 normal heart sound present and S2 normal heart sound present <ASHIA Vale - Last Filed: 01/30/22 11:33> GI: Inspection: No Abdominal wall edema <ASHIA Vale - Last Filed: 01/30/22 11:33> Palpation (GI): Soft to palpation and nontender <ASHIA Vale - Last Filed: 01/30/22 11:33> Neuro: General: patient oriented x3 <ASHIA Vale - Last Filed: 01/30/22 11:33> Extrem: General: Yes no pedal edema <ASHIA Vale - Last Filed: 01/30/22 11:33> Objective Data Active Medications Acetaminophen (Acetaminophen 325 Mg Tablet) 650 mg PO Q6H PRN PRN Reason: Pain, Mild (Pain Scale 1-3) Last Admin: 01/29/22 15:34 Dose: 650 mg Documented by: SUNNI Amlodipine Besylate (Amlodipine Besylate 10 Mg Tablet) 10 mg PO DAILY [facility]; Protocol Last Admin: 01/30/22 08:16 Dose: 10 mg Documented by: DINH Buspirone HCl (Buspirone Hcl 5 Mg Tablet) 5 mg PO BID [facility] Last Admin: 01/30/22 08:15 Dose: 5 mg Documented by: DINH Docusate Sodium (Docusate Sodium 100 Mg Capsule) 100 mg PO DAILY [facility] Last Admin: 01/30/22 08:15 Dose: 100 mg Documented by: DINH Enoxaparin Sodium (Enoxaparin Sodium 40 Mg/0.4 Ml Syringe) 40 mg SUBCUT Q24H [facility] Last Admin: 01/29/22 14:15 Dose: 40 mg Documented by: DINH Piperacillin Sod/Tazobactam (Sod 3.375 gm/ Sodium Chloride) 50 mls @ 100 mls/hr IV Q6H [facility] Last Infusion: 01/30/22 09:10 Dose: 100 mls/hr Documented by: DINH Melatonin (Melatonin 3 Mg Tablet) 6 mg PO BEDTIME PRN PRN Reason: Insomnia Metoprolol Succinate (Metoprolol Succinate Er 100 Mg Tab.Er.24h) 100 mg PO DAILY [facility]; Protocol Last Admin: 01/30/22 08:15 Dose: 100 mg Documented by: DINH Morphine Sulfate (Morphine Sulfate 2 Mg/Ml Cartridge) 2 mg IVPUSH Q4H PRN; Protocol PRN Reason: Pain, Severe (Pain Scale 7-10) Last Admin: 01/30/22 08:14 Dose: 2 mg Documented by: DINH Omeprazole (Omeprazole 20 Mg Capsule.Dr) 20 mg PO DAILY [facility] Last Admin: 01/30/22 08:15 Dose: 20 mg Documented by: DINH Ondansetron HCl (Ondansetron Hcl 4 Mg/2 Ml Vial) 4 mg IVPUSH Q6H PRN PRN Reason: Nausea Last Admin: 01/27/22 18:37 Dose: 4 mg Documented by: ASHLI Oxycodone HCl (Oxycodone Hcl Immed Release 5 Mg Tablet) 5 mg PO Q6H PRN PRN Reason: Pain, Moderate (Pain Scale 4-6 Last Admin: 01/29/22 19:58 Dose: 5 mg Documented by: ROSALBA Pharmacy Consult (Consult Rx Perform Med Rec) 1 each MISCELLANE ONCE PRN PRN Reason: Consult order Pharmacy Consult (Consult Rx Vancomycin Dosing) 1 each MISCELLANE DAILY PRN PRN Reason: Consult order Senna (Sennosides 8.6 Mg Tablet) 17.2 mg PO BEDTIME [facility] Last Admin: 01/29/22 19:51 Dose: 17.2 mg Documented by: ROSALBA Sodium Chloride (0.9 % Sodium Chloride Flush 3 Ml Syringe) 3 ml IVFLUSH QSHIFT [facility] Last Admin: 01/30/22 08:16 Dose: 3 ml Documented by: DINH <ASHIA Vale - Last Filed: 01/30/22 11:33> Labs CBC & Chem 7: : 01/30/22 03:22 01/30/22 03:22 <ASHIA Vale - Last Filed: 01/30/22 11:33> Labs: Laboratory Results - last 24 hr 01/30/22 01/30/22 03:22 03:22 MCV 89.2 MCH 27.2 MCHC 30.6 L RDW 14.1 Plt Count 292 MPV 9.8 Absolute Nucleated RBC 0.000 Nucleated RBC % (auto) 0.0 Anion Gap 16 Estim Creat Clear Calc 54.2 Estimated GFR 50 Random Glucose 104 Calcium 8.9 <ASHIA Vale - Last Filed: 01/30/22 11:33> Microbiology Microbiology Results: Microbiology 01/27/22 10:15 Blood Culture - Preliminary Blood - Venous No growth after 48 hours. 01/27/22 10:04 Blood Culture - Preliminary Blood - Venous No growth after 48 hours. <ASHIA Vale - Last Filed: 01/30/22 11:33> Assessment and Plan (1) Venous insufficiency: Status: Acute <ASHIA Vale - Last Filed: 01/30/22 11:33> (2) Cellulitis: Status: Acute <ASHIA Vale - Last Filed: 01/30/22 11:33> Plan This is a 66-year-old female with history of insufficiency, hypertension, no nhealing left leg wound for several months sent to the emergency department by vascular surgery Nonhealing left leg ulcer/cellulitis r/t venous insufficiency Circumferential erythema from ankle to knee with multiple areas of shallow ulceration No evidence of sepsis at this time. MRI negative for osteo Initially treated with IV vanco and zosyn; Seen by jaida HIDALGO d/c (outpt wound culture growing pseudomonas) recommend to change to levaquin upon discharge continue zosyn day #4 vascular surgery following, no further imaging studies/vascular intervention required at this time. BCx negative to date -continue pain control -continue local wound care/daily dressing changes Acute normocytic anemia No overt blood loss noted B12, folate wnl iron studies c/w iron deficiency, stool occult pending H/H stable Hypertension Some high readings, typcially with dressing changes/increased pain Continue home Norvasc, metoprolol GERD Continue omeprazole Mood Continue buspirone DVT prophylaxis-Lovenox Code status-full code HCP - , Chang Attending- Dr. White Patient requires ongoing inpatient stay due to severe leg wound requiring IV antibiotics, pain control requiring IV narcotics dispo: home with VNA for dressing changes when medically ready <ASHIA Vale - Last Filed: 01/30/22 11:33> This is a 66-year-old female with history of insufficiency, hypertension, nonhealing left leg wound for several months sent to the emergency department by vascular surgery Nonhealing left leg ulcer/cellulitis r/t venous insufficiency Circumferential erythema from ankle to knee with multiple areas of shallow ulcer ation No evidence of sepsis at this time. MRI negative for osteo Initially treated with IV vanco and zosyn; Seen by ID, jaida d/c (outpt wound culture growing pseudomonas) recommend to change to levaquin upon discharge continue zosyn day #4 vascular surgery following, no further imaging studies/vascular intervention required at this time. BCx negative to date -continue pain control -continue local wound care/daily dressing changes Acute normocytic anemia No overt blood loss noted B12, folate wnl iron studies c/w iron deficiency, stool occult pending H/H stable Hypertension Some high readings, typcially with dressing changes/increased pain Continue home Norvasc, metoprolol GERD Continue omeprazole Mood Continue buspirone DVT prophylaxis-Lovenox Code status-full code HCP - , Chang Attending- Dr. White Chart reviewed; patient examined. Agree with history physical and plan as outlined by Ms. Greenki Patient requires ongoing inpatient stay due to severe leg wound requiring IV antibiotics, pain control requiring IV narcotics dispo: home with VNA for dressing changes when medically ready <Brooks White DO - Last Filed: 01/30/22 15:07> Quality Stroke Does the patient have a stroke diagnosis?: No <ASHIA Vale - Last Filed: 01/30/22 11:33> VTE Prior VTE?: No <ASHIA Vale - Last Filed: 01/30/22 11:33> VTE Risk Level:: Medical - moderate - high <ASHIA Vale - Last Filed: 01/30/22 11:33> VTE Device Contraindication: Treatment Not Indicated <ASHIA Vale - Last Filed: 01/30/22 11:33> VTE Drug Contraindication: N/A - Med Ordered <ASHIA Vale - Last Filed: 01/30/22 11:33>
[2022-01-30] MEDS: Enoxaparin Sodium 40 MG/0.4 ML SYRINGE SUBCUT (13:53)
[2022-01-30 15:12] VITALS: BP 146/65; PULSE 78; RESP 18; TEMP 36.6; O2SAT 96
[2022-01-30 20:34] VITALS: BP 155/66; PULSE 85; RESP 18; TEMP 37; O2SAT 95
[2022-01-30] MEDS: Sennosides 8.6 MG TABLET 17.2 MG PO (20:41)
[2022-01-30 23:28] VITALS: BP 155/94; PULSE 88; RESP 18; TEMP 36.9; O2SAT 96
[2022-01-31] MEDS: 0.9 % Sodium Chloride Flush 3 ML SYRINGE IVFLUSH ×3 (00:18→16:48)
[2022-01-31] MEDS: Piperacillin Sodium/Tazobactam 3.375 GM in 0.9 % Sodium Chloride 50 ML IV ×4 (02:20→21:01)
[2022-01-31 07:28] VITALS: BP 184/80; PULSE 90; RESP 18; TEMP 36.2; O2SAT 93
[2022-01-31] MEDS: Metoprolol Succinate ER 100 MG TAB.ER.24H PO (07:54)
[2022-01-31] MEDS: amLODIPine Besylate 10 MG TABLET PO (07:54)
[2022-01-31] MEDS: busPIRone HCl 5 MG TABLET PO ×2 (07:55→21:01)
[2022-01-31] MEDS: Omeprazole 20 MG CAPSULE.DR PO (07:55)
[2022-01-31] MEDS: Docusate Sodium 100 MG CAPSULE PO (07:56)
[2022-01-31] MEDS: Morphine Sulfate 2 MG/ML CARTRIDGE IVPUSH ×3 (08:03→16:46)
--- NOTE | 2022-01-31 09:34 | P.CDIC_ITS ---
CDI Concurrent Query Documentation Clarification: PHYSICIAN'S DOCUMENTATION REQUEST Date of Query: 01/31/22 0934 Patient Name: Ewa Reyes Admit Date: 01/27/22 Dear Doctor, A review of the medical record indicates additional documentation may be needed. Please review below and update the documentation accordingly. Clinical Indicators: Risk Factors/Clinical Indicators/Treatments PN: 01/30 - Assessment/plan: Normocytic anemia iron studies /w iron deficiency Iron level: 23 L Stool occult pending Based on the above, could you clarify in the Progress Notes which of the following is the most likely type of anemia you are evaluating, treating, and/or monitoring? * Iron deficiency * Iron deficiency anemia * Chronic iron deficiency anemia * Other ? please specify * Unable to determine Use of terms such as suspected, likely, concern for, or probable (associated with a specific diagnosis that is being evaluated, monitored, or treated as if it exists) are acceptable and can be coded in the inpatient setting, when documented at the time of discharge. Thank you, Kristen Strong [facility], [facility] Extension: [id number] Please use your independent medical judgment in providing your response. THIS QUERY IS PART OF THE PERMANENT MEDICAL RECORD Other Diagnosis: Iron def anemia
[2022-01-31] MEDS: ondansetron HCL 4 MG/2 ML VIAL IVPUSH (09:35)
--- NOTE | 2022-01-31 10:35 | P.DS_ITS ---
DS: Providers Provider Date of Service: 01/31/22 Date of admission: 01/27/22 12:56 Primary care physician: Arian Heredia [facility] Consults: 01/27/22 12:56 Consult to Infectious Diseases Routine Consulting Provider: Sallie Kay Reason for consultation: left leg ulcer/cellulitis Has provider been notified: No Consult to Vascular Surgery Routine Consulting Provider: Chase Orozco Reason for consultation: nonhealing left leg ulcer Has provider been notified: No Attending physician on discharge: Leroy Garcia Discharging clinician: Molly Narvaez DS: Diagnosis Discharge Diagnosis (1) Venous insufficiency: Status: Acute (2) Cellulitis: Status: Acute DS: Summary Hospital Course Hospital Course: HP as per admitting provider This is a 58-year-old female with history of chronic venous insufficiency who presents to the emergency department due to nonhealing left leg wound.? Patient was initially followed by the wound care center starting in September 2021 for ulcers of the left lower extremity.? She was initially placed in an Roxanne boot but due to copious drainage this seems to have caused maceration of the surrounding skin.? Since that time she has had 2 courses of antibiotics and has followed up with Dr. Orozco of vascular surgery.? She has been unable to tolerate any sort of compression.? She has been managing her pain with ibuprofen and Tylenol.? She saw Dr. Orozco on January 25 and her wounds were still not improving therefore he recommended that she come to the hospital for IV antibiotics.? She reports significant pain, copious drainage.? She is afebrile, lab work significant for mild leukocytosis 11.9 as well as elevated ESR of 92 and CRP of 12.9.? Plain film x-ray showed no evidence of overt cortical erosive changes.? She was treated with IV vancomycin and Zosyn and required multiple doses of IV narcotics for adequate pain control.? She will be admitted to the hospital for further management of nonhealing leg wound and cellulitis. Vaccination status-patient has received Moderna x3 . Nonhealing left leg ulcer/cellulitis r/t venous insufficiency Circumferential erythema from ankle to knee with multiple areas of shallow ulceration No evidence of sepsis at this time. MRI negative for osteo Initially treated with IV vanco and zosyn; Seen by ID, jaida d/c recommend to change to Levaquin upon discharge for 14 days vascular surgery following, no further imaging studies/vascular intervention required at this time. BCx negative to date wound care as per [facility] and Wound clinic Acute normocytic iron def anemia No overt blood loss noted B12, folate wnl iron studies c/w iron deficiency oral iron ordered daily H/H stable Hypertension Some high readings, typically with dressing changes/increased pain Continue home Norvasc, metoprolol GERD Continue omeprazole Mood Continue buspirone Time Spent with Patient Time attestation: Total time spent providing and/or coordinating discharge services: Physical Exam Vital Signs: Vital Signs: Last Vital Signs Temp 97.2 F 01/31/22 07:28 Pulse 90 01/31/22 07:28 Resp 18 01/31/22 07:28 BP 184/80 H 01/31/22 07:28 Pulse Ox 93 01/31/22 07:28 BMI result Body Mass Index 34.1 Appearing in no acute distress head is normocephalic atraumatic eyes pupils are PERRLA sclera is anicteric mouth throat mucous membranes are intact and moist neck is supple no lymphadenopathy, no JVD noted lung sounds are clear to auscultation heart regular rate rhythm, clear S1, S2 positive bowel sounds, abdomen is soft, nontender neuro patient is alert x3, no focal deficits DS: Data Data Completed and Pending Labs on day of discharge: Preliminary micro results at discharge 01/27/22 10:15 Blood Culture - Preliminary Blood - Venous No growth after 48 hours. 01/27/22 10:04 Blood Culture - Preliminary Blood - Venous No growth after 48 hours. Discharge Plan Discharge Anticipated Discharge Date/Time: 01/31/22 10:13 Patient Disposition: Home Health Service Discharge Diagnosis: Nonhealing left leg ulcer Cellulitis Acute normocytic anemia Referrals: Arian Heredia FNP-BC [Primary Care Provider] - 1 Week Discharge Medications: New oxycodone 5 mg Tablet 5 mg PO Q6H PRN (Reason: Pain, Moderate (Pain Scale 4-6) Qty: 20 0RF ferrous sulfate 325 mg (65 mg iron) tablet 325 mg PO DAILY Qty: 30 0RF levofloxacin 500 mg tablet 500 mg PO DAILY Qty: 14 0RF Continued metoprolol succinate 100 mg tablet extended release 24 hr 100 mg PO DAILY 90 Days Qty: 90 0RF amlodipine [Norvasc] 5 mg tablet 10 mg PO DAILY Qty: 60 3RF buspirone 5 mg tablet 5 mg PO BID Qty: 60 2RF acetaminophen [Tylenol Ex Str Arthritis Pain] 500 mg Tablet 1,000 mg PO Q6H PRN (Reason: Pain) 0RF omeprazole 20 mg Capsule,Delayed Release(Dr/Ec) 20 mg PO DAILY 0RF ibuprofen 600 mg Tablet 600 mg PO Q6H PRN (Reason: Pain) 0RF Diet: advance to usual diet Activity on Discharge: As tolerated Stand Alone Forms: Patient Portal Discharge page Care Plan Goals: Continue wound management of left leg ulcer Health Concerns: Nonhealing left leg ulcer Cellulitis Acute normocytic anemia Plan of Treatment: Follow-up with Wound Care Clinic for wound management after visiting nurse serv ices are completed Follow-up with your primary care provider as needed Assessment: see discharge summary
--- NOTE | 2022-01-31 11:48 | MHC.CM.PN ---
NEW PLAN: PATIENT TO RETURN HOME TOMORROW (02/01/22) WITH [facility] START OF CARE Monday02/02/22 PATIENT DOES NOT WANT TO DC TO REHAB.
--- NOTE | 2022-01-31 12:08 | HO.PM.IMPN ---
Subjective Subjective Date of Service: 01/31/22 Review of Systems Follow up nonhealing left lower extremity wound Pain with manipulation and ambulation Appetite good Denies chest pain, shortness breath, nausea, vomiting Physical Exam Vital Signs: Vital Signs: Last Vital Signs Temp 97.2 F 01/31/22 07:28 Pulse 90 01/31/22 07:28 Resp 18 01/31/22 07:28 BP 184/80 H 01/31/22 07:28 Pulse Ox 93 01/31/22 07:28 BMI result Body Mass Index 34.1 Appearing in no acute distress lung sounds are clear to auscultation heart regular rate rhythm, clear S1, S2 positive bowel sounds, abdomen is soft, nontender neuro patient is alert x3, no focal deficits Erythema with sloughing yellow tissue Objective Data Active Medications Acetaminophen (Acetaminophen 325 Mg Tablet) 650 mg PO Q6H PRN PRN Reason: Pain, Mild (Pain Scale 1-3) Last Admin: 01/30/22 11:27 Dose: 650 mg Documented by: DINH Amlodipine Besylate (Amlodipine Besylate 10 Mg Tablet) 10 mg PO DAILY [facility]; Protocol Last Admin: 01/31/22 07:54 Dose: 10 mg Documented by: ASHLI Buspirone HCl (Buspirone Hcl 5 Mg Tablet) 5 mg PO BID [facility] Last Admin: 01/31/22 07:55 Dose: 5 mg Documented by: ASHLI Docusate Sodium (Docusate Sodium 100 Mg Capsule) 100 mg PO DAILY [facility] Last Admin: 01/31/22 07:56 Dose: 100 mg Documented by: ASHLI Enoxaparin Sodium (Enoxaparin Sodium 40 Mg/0.4 Ml Syringe) 40 mg SUBCUT Q24H [facility] Last Admin: 01/30/22 13:53 Dose: 40 mg Documented by: DINH Piperacillin Sod/Tazobactam (Sod 3.375 gm/ Sodium Chloride) 50 mls @ 100 mls/hr IV Q6H [facility] Last Infusion: 01/31/22 09:31 Dose: 0 mls/hr Documented by: ASHLI Melatonin (Melatonin 3 Mg Tablet) 6 mg PO BEDTIME PRN PRN Reason: Insomnia Metoprolol Succinate (Metoprolol Succinate Er 100 Mg Tab.Er.24h) 100 mg PO DAILY [facility]; Protocol Last Admin: 01/31/22 07:54 Dose: 100 mg Documented by: ASHLI Morphine Sulfate (Morphine Sulfate 2 Mg/Ml Cartridge) 2 mg IVPUSH Q4H PRN; Protocol PRN Reason: Pain, Severe (Pain Scale 7-10) Last Admin: 01/31/22 08:03 Dose: 2 mg Documented by: ASHLI Omeprazole (Omeprazole 20 Mg Capsule.Dr) 20 mg PO DAILY [facility] Last Admin: 01/31/22 07:55 Dose: 20 mg Documented by: ASHLI Ondansetron HCl (Ondansetron Hcl 4 Mg/2 Ml Vial) 4 mg IVPUSH Q6H PRN PRN Reason: Nausea Last Admin: 01/31/22 09:35 Dose: 4 mg Documented by: ASHLI Oxycodone HCl (Oxycodone Hcl Immed Release 5 Mg Tablet) 5 mg PO Q6H PRN PRN Reason: Pain, Moderate (Pain Scale 4-6 Last Admin: 01/30/22 17:50 Dose: 5 mg Documented by: ROSALBA Pharmacy Consult (Consult Rx Perform Med Rec) 1 each MISCELLANE ONCE PRN PRN Reason: Consult order Pharmacy Consult (Consult Rx Vancomycin Dosing) 1 each MISCELLANE DAILY PRN PRN Reason: Consult order Senna (Sennosides 8.6 Mg Tablet) 17.2 mg PO BEDTIME [facility] Last Admin: 01/30/22 20:41 Dose: 17.2 mg Documented by: ROSALBA Sodium Chloride (0.9 % Sodium Chloride Flush 3 Ml Syringe) 3 ml IVFLUSH QSHIFT [facility] Last Admin: 01/31/22 07:56 Dose: 3 ml Documented by: ASHLI Labs CBC & Chem 7: 01/30/22 03:22 01/30/22 03:22 Assessment and Plan (1) Venous insufficiency: Status: Acute (2) Cellulitis: Status: Acute Plan This is a 66-year-old female with history of insufficiency, hypertension, nonhealing left leg wound for several months sent to the emergency department by vascular surgery Nonhealing left leg ulcer/cellulitis r/t venous insufficiency Circumferential erythema from ankle to knee with multiple areas of shallow ulceration No evidence of sepsis at this time. MRI negative for osteo Initially treated with IV vanco and zosyn; Seen by ID, vanco d/c (outpt wound culture growing pseudomonas) recommend to change to levaquin upon discharge vascular surgery following, no further imaging studies/vascular intervention required at this time. BCx negative to date -continue pain control -continue local wound care/daily dressing changes PT consult Acute normocytic anemia No overt blood loss noted B12, folate wnl iron studies c/w iron deficiency, stool occult pending H/H stable Hypertension Some high readings, typcially with dressing changes/increased pain Continue home Norvasc, metoprolol GERD Continue omeprazole Mood Continue buspirone DVT prophylaxis-Lovenox Code status-full code HCP - , Chang Dr. Garcia Patient requires ongoing inpatient stay due to severe leg wound requiring IV antibiotics, pain control requiring IV narcotics Quality Stroke Does the patient have a stroke diagnosis?: No VTE Prior VTE?: No VTE Risk Level:: Medical - moderate - high VTE Device Contraindication: Treatment Not Indicated VTE Drug Contraindication: N/A - Med Ordered
--- NOTE | 2022-01-31 12:21 | HO.VASCPN ---
Subjective Subjective Date of Service: 01/31/22 Patient reports: no new complaints and feels better Interval history: 66-year-old female with significant cellulitis of the left lower extremity presents for routine hospital follow-up. She has been on IV antibiotics through the weekend. Reports that the swelling and drainage have significantly decreased. She appears to be doing relatively well. She is now for follow-up. Physical Exam Vital Signs: Vital Signs: Last Vital Signs Temp 97.2 F 01/31/22 07:28 Pulse 90 01/31/22 07:28 Resp 18 01/31/22 07:28 BP 184/80 H 01/31/22 07:28 Pulse Ox 93 01/31/22 07:28 BMI result Body Mass Index 34.1 Const: General: cooperative, healthy appearing and comfortable Orientation/consciousness: oriented to person, oriented to place and oriented to time HEENT: Head: Yes normal to inspection Neck: Neck: Yes normal visual inspection Carotids: no bruits Chest: Chest palpation & inspection: normal inspection of the chest Resp: Effort & Inspection: normal respiratory effort and able to speak in complete sentences Auscultation: clear to auscultation bilaterally, no crackles, no rales, no rhonchi and no wheezes Cardio: Rate: regular rate Rhythm: regular rhythm Heart sounds: S1 normal heart sound present and S2 normal heart sound present Bruits: no carotid bruits Peripheral pulses: Peripheral pulses 2+ throughout GI: Inspection: Yes normal to inspection Skin: Wounds: wounds noted ( Left calf + pretibial area excoriated open ulceration, decreased erythema) Hair: normal Neuro: General: oriented to person, oriented to place and oriented to time Cranial nerves: Yes CN's II-XII intact bilaterally and Yes Normal hearing present Cognition (Neuro): normal cognition Motor exam (neuro): 5/5 motor strength present throughout Extrem: Other: venous exam: No significant superficial varicosities or spider telangiectasias, minimal edema General: No clubbing, No cyanosis and No edema Psych: Appearance: grossly normal Mental Status: mental status grossly normal Speech and movement: Normal speech and movement present Progress Note: A&P Assessment and plan (1) Leg wound, left: Status: Acute Assessment and Plan: in short left leg appears to be doing significantly better with antibiotic therapy. I do believe she is stable from discharge from my perspective. Will write for routine wound care upon discharge. In addition the patient will follow up at [facility] [place]. She is scheduled for 2 week follow-up with us as an outpatient. She will be set up with visiting nurses as well. Thank you for allowing us to assist in her care. If there are any questions or concerns please do not hesitate to contact us. Fall Risk Details Current Medications: Current Medications Acetaminophen (Acetaminophen 325 Mg Tablet) 650 mg PO Q6H PRN PRN Reason: Pain, Mild (Pain Scale 1-3) Last Admin: 01/30/22 11:27 Dose: 650 mg Documented by: Amlodipine Besylate (Amlodipine Besylate 10 Mg Tablet) 10 mg PO DAILY [facility]; Protocol Last Admin: 01/31/22 07:54 Dose: 10 mg Documented by: Buspirone HCl (Buspirone Hcl 5 Mg Tablet) 5 mg PO BID [facility] Last Admin: 01/31/22 07:55 Dose: 5 mg Documented by: Docusate Sodium (Docusate Sodium 100 Mg Capsule) 100 mg PO DAILY [facility] Last Admin: 01/31/22 07:56 Dose: 100 mg Documented by: Enoxaparin Sodium (Enoxaparin Sodium 40 Mg/0.4 Ml Syringe) 40 mg SUBCUT Q24H [facility] Last Admin: 01/30/22 13:53 Dose: 40 mg Documented by: Piperacillin Sod/Tazobactam (Sod 3.375 gm/ Sodium Chloride) 50 mls @ 100 mls/hr IV Q6H [facility] Last Infusion: 01/31/22 09:31 Dose: Infused Documented by: Melatonin (Melatonin 3 Mg Tablet) 6 mg PO BEDTIME PRN PRN Reason: Insomnia Metoprolol Succinate (Metoprolol Succinate Er 100 Mg Tab.Er.24h) 100 mg PO DAILY [facility]; Protocol Last Admin: 01/31/22 07:54 Dose: 100 mg Documented by: Morphine Sulfate (Morphine Sulfate 2 Mg/Ml Cartridge) 2 mg IVPUSH Q4H PRN; Protocol PRN Reason: Pain, Severe (Pain Scale 7-10) Last Admin: 01/31/22 12:06 Dose: 2 mg Documented by: Omeprazole (Omeprazole 20 Mg Capsule.Dr) 20 mg PO DAILY [facility] Last Admin: 01/31/22 07:55 Dose: 20 mg Documented by: Ondansetron HCl (Ondansetron Hcl 4 Mg/2 Ml Vial) 4 mg IVPUSH Q6H PRN PRN Reason: Nausea Last Admin: 01/31/22 09:35 Dose: 4 mg Documented by: Oxycodone HCl (Oxycodone Hcl Immed Release 5 Mg Tablet) 5 mg PO Q6H PRN PRN Reason: Pain, Moderate (Pain Scale 4-6 Last Admin: 01/30/22 17:50 Dose: 5 mg Documented by: Pharmacy Consult (Consult Rx Perform Med Rec) 1 each MISCELLANE ONCE PRN PRN Reason: Consult order Pharmacy Consult (Consult Rx Vancomycin Dosing) 1 each MISCELLANE DAILY PRN PRN Reason: Consult order Senna (Sennosides 8.6 Mg Tablet) 17.2 mg PO BEDTIME [facility] Last Admin: 01/30/22 20:41 Dose: 17.2 mg Documented by: Sodium Chloride (0.9 % Sodium Chloride Flush 3 Ml Syringe) 3 ml IVFLUSH QSHIFT [facility] Last Admin: 01/31/22 07:56 Dose: 3 ml Documented by: Time Spent With Patient Time: Total time spent is greater than 50% in coordination of care (as documented) at patient's floor/unit and/or counseling patient: Procedures Date of Service Date of Service: 01/31/22 Quality Stroke Does the patient have a stroke diagnosis?: No VTE Prior VTE?: No VTE Risk Level:: Medical - moderate - high VTE Device Contraindication: Treatment Not Indicated VTE Drug Contraindication: N/A - Med Ordered
[2022-01-31] MEDS: Enoxaparin Sodium 40 MG/0.4 ML SYRINGE SUBCUT (12:56)
[2022-01-31 15:46] VITALS: BP 168/65; PULSE 87; RESP 18; TEMP 36.8; O2SAT 99
[2022-01-31] MEDS: Sennosides 8.6 MG TABLET 17.2 MG PO (21:01)
[2022-01-31 23:37] VITALS: BP 160/83; PULSE 79; RESP 18; TEMP 36.4; O2SAT 96
[2022-02-01] MEDS: 0.9 % Sodium Chloride Flush 3 ML SYRINGE IVFLUSH ×2 (00:26→09:50)
[2022-02-01] MEDS: Morphine Sulfate 2 MG/ML CARTRIDGE IVPUSH ×2 (00:52→12:53)
[2022-02-01] MEDS: Piperacillin Sodium/Tazobactam 3.375 GM in 0.9 % Sodium Chloride 50 ML IV ×2 (01:08→09:50)
[2022-02-01 08:00] VITALS: BP 157/69; PULSE 93; RESP 18; TEMP 36.8; O2SAT 92
[2022-02-01] MEDS: Omeprazole 20 MG CAPSULE.DR PO (09:49)
[2022-02-01] MEDS: Metoprolol Succinate ER 100 MG TAB.ER.24H PO (09:49)
[2022-02-01] MEDS: amLODIPine Besylate 10 MG TABLET PO (09:49)
[2022-02-01] MEDS: busPIRone HCl 5 MG TABLET PO (09:50)
--- NOTE | 2022-02-01 11:40 | PM.DS ---
DS: Providers Provider Date of Service: 02/01/22 Date of admission: 01/27/22 12:56 Primary care physician: RANDOLPH Gonsalez Consults: 01/27/22 12:56 Consult to Infectious Diseases Routine Consulting Provider: Sallie Kay Reason for consultation: left leg ulcer/cellulitis Has provider been notified: No Consult to Vascular Surgery Routine Consulting Provider: Chase Orozco Reason for consultation: nonhealing left leg ulcer Has provider been notified: No DS: Diagnosis Discharge Diagnosis (1) Leg wound, left: Status: Acute DS: Summary Hospital Course Hospital Course: HP as per admitting provider This is a 58-year-old female with history of chronic venous insufficiency who presents to the emergency department due to nonhealing left leg wound.? Patient was initially followed by the wound care center starting in September 2021 for ulcers of the left lower extremity.? She was initially placed in an Roxanne boot but due to copious drainage this seems to have caused maceration of the surrounding skin.? Since that time she has had 2 courses of antibiotics and has followed up with Dr. Orozco of vascular surgery.? She has been unable to tolerate any sort of compression.? She has been managing her pain with ibuprofen and Tylenol.? She saw Dr. Orozco on January 25 and her wounds were still not improving therefore he recommended that she come to the hospital for IV antibiotics.? She reports significant pain, copious drainage.? She is afebrile, lab work significant for mild leukocytosis 11.9 as well as elevated ESR of 92 and CRP of 12.9.? Plain film x-ray showed no evidence of overt cortical erosive changes.? She was treated with IV vancomycin and Zosyn and required multiple doses of IV narcotics for adequate pain control.? She will be admitted to the hospital for further management of nonhealing leg wound and cellulitis. Vaccination status-patient has received Moderna x3 . Hospital coruse: Nonhealing left leg ulcer/cellulitis r/t venous insufficiency Circumferential erythema from ankle to knee with multiple areas of shallow ulceration MRI negative for osteo Initially treated with IV vanco and zosyn; Seen by jaida HIDALGO d/c recommend to change to Levaquin upon discharge for 14 days vascular surgery following, no further imaging studies/vascular intervention required at this time. BCx negative to date wound care as per [facility] Acute normocytic iron def anemia No overt blood loss noted B12, folate wnl iron studies c/w iron deficiency oral iron ordered daily H/H stable Hypertension Some high readings, typically with dressing changes/increased pain Continue home Norvasc, metoprolol GERD Continue omeprazole Mood Continue buspirone Time Spent with Patient Time attestation: Total time spent providing and/or coordinating discharge services: Discharge coordination time: Greater than 30 minutes Quality: Safe Use of Opioids Does Pt have an Active Cancer Diagnosis on the Problem List?: No Quality: Stroke Does the patient have a stroke diagnosis?: No Physical Exam Vital Signs: Vital Signs: Last Vital Signs Temp 98.3 F 02/01/22 08:00 Pulse 93 02/01/22 08:00 Resp 18 02/01/22 08:00 BP 157/69 H 02/01/22 08:00 Pulse Ox 92 02/01/22 08:00 BMI result Body Mass Index 34.1 DS: Data Data Completed and Pending Labs on day of discharge: Preliminary micro results at discharge 01/27/22 10:15 Blood Culture - Preliminary Blood - Venous No growth after 48 hours. 01/27/22 10:04 Blood Culture - Preliminary Blood - Venous No growth after 48 hours. Discharge Plan Discharge Anticipated Discharge Date/Time: 02/01/22 11:39 Patient Disposition: Home Health Service Discharge Diagnosis: Nonhealing left leg ulcer Cellulitis Acute normocytic anemia Referrals: Adal CHENEY [Outside] - 1 Week Arian Heredia FNP-BC [Primary Care Provider] - 1 Week Discharge Medications: New oxycodone 5 mg Tablet 5 mg PO Q6H PRN (Reason: Pain, Moderate (Pain Scale 4-6) Qty: 20 0RF ferrous sulfate 325 mg (65 mg iron) tablet 325 mg PO DAILY Qty: 30 0RF hydromorphone [Dilaudid] 2 mg tablet 2 mg PO Q6H PRN (Reason: pain (scale score 7-10)) Qty: 20 0RF levofloxacin 500 mg tablet 500 mg PO DAILY 14 Days Qty: 14 0RF Continued buspirone 5 mg tablet 5 mg PO BID Qty: 60 2RF acetaminophen 500 mg Tablet 1,000 mg PO Q6H PRN (Reason: Pain) 0RF omeprazole 20 mg Capsule,Delayed Release(Dr/Ec) 20 mg PO DAILY 0RF ibuprofen 600 mg Tablet 600 mg PO Q6H PRN (Reason: Pain) 0RF No Action metoprolol succinate 100 mg tablet extended release 24 hr 100 mg PO DAILY 90 Days Qty: 90 0RF amlodipine [Norvasc] 5 mg tablet 10 mg PO DAILY Qty: 60 3RF nitrofurantoin macrocrystal 100 mg capsule 100 mg PO BID 5 Days Qty: 10 0RF Rx Instructions: must administer with a meal/food Discharge Orders: Discharge Order (Routine); Ordered 02/01/22 Ordered By: Gregor Godfrey Diet: advance to usual diet Activity on Discharge: As tolerated Stand Alone Forms: Patient Portal Discharge page Activity Restrictions/Additional Instructions: Wound care upon discharge: large xeroform, 4x4, abd and Kerlix wrap to be changed daily. Please use saline to remove dressings. Please call Dr. Orozco at [phone] for 2 week follow up Care Plan Goals: Continue wound management of left leg ulcer Health Concerns: Nonhealing left leg ulcer Cellulitis Acute normocytic anemia Plan of Treatment: Follow-up with Wound Care Clinic for wound management after visiting nurse services are completed Follow-up with your primary care provider as needed Assessment: see discharge summary Discharge Date/Time: 02/01/22 14:46
--- NOTE | 2022-02-01 11:43 | MHC.CM.PN ---
Addendum entered by Rani Chow 02/01/22 11:53: IMM 01/31 IN CHART Original Note: PATIENT IS DC TO HOME TODAY WITH NEW [facility] PATIENT, SPOUSE (IN ROOM), RN, AND UNIT AWARE OF PLAN.
--- NOTE | 2022-02-01 11:44 | P.F2F_ITS ---
Service Date Service Date: 02/01/22 Encounter Date of encounter: 02/01/22 Reasons for Services Signs and symptoms assessed: leg wound Reason for penitentiary: wound care Homebound: Leaving the home is medically contraindicated at this time without the asist of a device and/or another person due th the listed conditions above and below. Reason homebound: pain with ambulation Homebound supporting statement: Homebound due to leg wound associated with pain and ifficulty ambulating and therefore needs the assistance of another person Certification: Based on the above findings, I certify that this patient is confined to the home and needs intermittent penitentiary care, physical therapy and/or speech therapy, or continues to need occupational therapy. The patient is under my care, and I have initiated the establishment of the plan of care. The patient will be followed by a physician who will periodically review the plan of care.
== END 2022-02-01 14:46 | disposition home health service (06) | DRG 603 ==
LOC: HO.ED 10:11 → HO.EDOVER 13:13 → HO.S3 16:28
PROVIDERS: Physician Assistant Medical; Admitting Provider Physician Assistant Medical; Emergency Provider Emergency Medicine Emergency Medical Services; PCP Nurse Practitioner Family; Visit Provider Internal Medicine
DX: L03.116 Cellulitis of left lower limb (principal); I87.332 Chronic venous hypertension (idiopathic) with ulcer and inflammation of left lower extremity; L97.829 Non-pressure chronic ulcer of other part of left lower leg with unspecified severity; F39 Unspecified mood [affective] disorder; D50.9 Iron deficiency anemia, unspecified; K21.9 Gastro-esophageal reflux disease without esophagitis; Z20.822 Contact with and (suspected) exposure to COVID-19; Z88.2 Allergy status to sulfonamides; Z79.899 Other long term (current) drug therapy
CPT/HCPCS: 36415; 73590; 73720; 80048; 80053; 80202; 82607; 82746; 83540; 85025; 85027; 85652; 86140; 86141; 87040; 87635; 96365; 96367; 96375; 99285; A9585; J1650; J2270; J2405; J2543; J3370

== ENCOUNTER → 2022-02-24 12:56 | Outpatient (BNVA) | payer MEDICARE, SELFPAY | PROVIDERS: PCP Nurse Practitioner Family; Visit Provider Surgery Vascular Surgery | DX: S81.802A Unspecified open wound, left lower leg, initial encounter (principal) | CPT/HCPCS: 99212 ==

== ENCOUNTER 2022-03-16 15:01 | Outpatient (REF) | payer MEDICARE, SELFPAY ==
[2022-03-16 15:19] LABS: Appearance Urine HAZY; Color Urine YELLOW; Glucose Urine UA NEG (NEG); Leukocyte Esterase Urine TRACE (NEG); Nitrite Urine NEG (NEG); PH 5.5 (5.0-8.0); Specific Gravity - Urine >= 1.030 (1.005-1.025); Urine Blood NEG (NEG); Urine Ketones NEG (NEG); Urine Protein NEG (NEG-TRACE)
[2022-03-16 15:32] LABS: Bacteria Urine 3+ /LPF; Squamous Epithelial Cell Urine 1+ /LPF
[2022-03-16 15:33] LABS: Calcium Oxalate Crystals Urine TRACE /LPF
== END 2022-03-16 15:02 | disposition home or self-care (01) ==
LOC: HO.LNP 15:01
PROVIDERS: Visit Provider Nurse Practitioner Family
DX: R30.0 Dysuria (principal); N39.0 Urinary tract infection, site not specified
CPT/HCPCS: 81001; 87086

== ENCOUNTER 2022-03-23 14:38 | Outpatient (REF) | payer MEDICARE, SELFPAY ==
[2022-03-23 14:52] LABS: Appearance Urine CLOUDY; Color Urine YELLOW; Glucose Urine UA NEG (NEG); Leukocyte Esterase Urine NEG (NEG); Nitrite Urine NEG (NEG); Specific Gravity - Urine >= 1.030 (1.005-1.025); Urine Blood NEG (NEG); Urine Ketones NEG (NEG); Urine Protein NEG (NEG-TRACE)
[2022-03-23 14:58] LABS: Bacteria Urine 1+ /LPF; RBC Urine 0 /HPF (0); Squamous Epithelial Cell Urine 3+ /LPF
[2022-03-23 14:59] LABS: Renal Epithelial Cells Urine 1+ /LPF
== END 2022-03-23 14:39 | disposition home or self-care (01) ==
LOC: HO.HVNA 14:38
PROVIDERS: Visit Provider Nurse Practitioner Family
DX: R30.9 Painful micturition, unspecified (principal)
CPT/HCPCS: 81001

== ENCOUNTER → 2022-03-24 13:07 | Outpatient (BNVA) | payer MEDICARE, MEDICAID, SELFPAY | PROVIDERS: PCP Nurse Practitioner Family; Visit Provider Surgery Vascular Surgery | DX: S81.802D Unspecified open wound, left lower leg, subsequent encounter (principal) | CPT/HCPCS: 99212 ==

== ENCOUNTER → 2022-04-28 14:13 | Outpatient (BNVA) | payer MEDICARE, MEDICAID, SELFPAY | PROVIDERS: PCP Nurse Practitioner Family; Visit Provider Surgery Vascular Surgery | DX: L97.929 Non-pressure chronic ulcer of unspecified part of left lower leg with unspecified severity (principal); L03.116 Cellulitis of left lower limb | CPT/HCPCS: 99212 ==

== ENCOUNTER → 2022-05-12 13:20 | Outpatient (BNVA) | payer MEDICARE, MEDICAID, SELFPAY | PROVIDERS: PCP Nurse Practitioner Family; Visit Provider Surgery Vascular Surgery | DX: L97.929 Non-pressure chronic ulcer of unspecified part of left lower leg with unspecified severity (principal) | CPT/HCPCS: 99212 ==

== ENCOUNTER → 2022-05-26 11:33 | Outpatient (BNVA) | payer MEDICARE, MEDICAID, SELFPAY | PROVIDERS: PCP Nurse Practitioner Family; Visit Provider Surgery Vascular Surgery | DX: S81.802A Unspecified open wound, left lower leg, initial encounter (principal) | CPT/HCPCS: 99212 ==

== ENCOUNTER → 2022-06-07 13:01 | Outpatient (BNVA) | payer MEDICARE, MEDICAID, SELFPAY | PROVIDERS: PCP Nurse Practitioner Family; Visit Provider Surgery Vascular Surgery | DX: L97.929 Non-pressure chronic ulcer of unspecified part of left lower leg with unspecified severity (principal) | CPT/HCPCS: 99212 ==

== ENCOUNTER → 2022-06-15 10:47 | Outpatient (BNVA) | payer MEDICARE, MEDICAID, SELFPAY | PROVIDERS: PCP Nurse Practitioner Family; Visit Provider Internal Medicine | DX: S81.802A Unspecified open wound, left lower leg, initial encounter (principal); I83.12 Varicose veins of left lower extremity with inflammation | CPT/HCPCS: 99202; 99212 ==

== ENCOUNTER → 2022-06-28 13:03 | Outpatient (BNVA) | payer MEDICARE, MEDICAID, SELFPAY | PROVIDERS: PCP Nurse Practitioner Family; Visit Provider Surgery Vascular Surgery | DX: I83.228 Varicose veins of left lower extremity with both ulcer of other part of lower extremity and inflammation (principal); L97.829 Non-pressure chronic ulcer of other part of left lower leg with unspecified severity | CPT/HCPCS: 99212 ==

== ENCOUNTER 2022-07-05 11:08 | Outpatient (REF) | payer MEDICARE, MEDICAID, SELFPAY ==
[2022-07-05 14:03] LABS: Blood Urea Nitrogen 33 mg/dL (9-16); Estimated Glomerular Filt Rate 44
== END 2022-07-05 11:09 | disposition home or self-care (01) ==
LOC: HO.HMGCLDS 11:08
PROVIDERS: PCP Nurse Practitioner Family; Visit Provider Surgery Vascular Surgery
DX: S81.802A Unspecified open wound, left lower leg, initial encounter (principal)
CPT/HCPCS: 36415; 82565; 84520

== ENCOUNTER 2022-07-14 08:37 | Outpatient (REF) | payer MEDICARE, MEDICAID, SELFPAY ==
--- NOTE | ~2022-07-14 | CT_ITS ---
STUDY PERFORMED: CTA ABDOMEN AND PELVIS WITHOUT AND WITH CONTRAST HISTORY: Peripheral vascular disease with left lower extremity wound DESCRIPTION: Routine abdomen and pelvis CTA protocol with contrast was performed. 80 mL of Omnipaque 350 was administered. 3D POSTPROCESSING: Multiple 3-D angiographic images were processed from the initial data set by the [facility] under concurrent physician supervision. DOSE LOWERING TECHNIQUES: This CT examination was performed using dose optimization techniques as appropriate, variously including the following: - Automated exposure control - Adjustment of mA and/or kV according to patient size (this includes techniques or standardized protocols for targeted exams where dose is matched to indication/reason for exam; i.e. extremities or head) - Use of iterative reconstruction technique DLP: 33 mGycm. COMPARISON: None FINDINGS: VASCULAR: ABDOMINAL AORTA: Normal in caliber and patent. No evidence of aneurysm or stenosis. RIGHT LOWER EXTREMITY: Common iliac, external iliac, internal iliac and visualized femoral arteries are widely patent. LEFT LOWER EXTREMITY: Common iliac, external iliac, internal iliac and visualized femoral arteries are widely patent. CELIOMESENTERIC ARTERIES: Patent. RENAL ARTERIES: Patent. NONVASCULAR: Lung Bases: The visualized lung bases are unremarkable. Liver, Gallbladder and Biliary Tree: Liver is decreased in density consistent with hepatic steatosis. The gallbladder is unremarkable with no evidence of radiopaque gallstones, gallbladder wall thickening, or obvious pericholecystic inflammatory changes. Pancreas: Unremarkable. Spleen: Unremarkable. Adrenal Glands: Unremarkable. Kidneys and Ureters: The kidneys are normal in size, shape, and attenuation. No hydronephrosis, hydroureter, or calculi seen. No perinephric stranding. There is a 1.5 cm simple fluid density cyst in the upper pole of the left kidney. Bladder: Unremarkable. Gastrointestinal Tract: The small and large bowel are unremarkable. The appendix is unremarkable. Abdominal Wall: Small fat-containing umbilical hernia seen. Lymph Nodes: Normal. Pelvic Viscera: The uterus and adnexa are unremarkable. Osseous Structures: Posterior facet joint arthropathy is seen in the lower lumbar spine. CT/CT angio abdomen pelvis IMPRESSION: Normal CTA of the abdomen and pelvis. No acute arterial occlusion
[2022-07-14] MEDS: iohexoL 350 MG/ML 100 ML INFUS..BTL IV (09:59)
== END 2022-07-14 08:38 | disposition home or self-care (01) ==
LOC: HO.CT 08:37
PROVIDERS: PCP Nurse Practitioner Family; Visit Provider Surgery Vascular Surgery
DX: I73.9 Peripheral vascular disease, unspecified (principal)
CPT/HCPCS: 74174; Q9967

== ENCOUNTER → 2022-07-26 13:36 | Outpatient (BNVA) | payer MEDICARE, MEDICAID, SELFPAY | PROVIDERS: PCP Nurse Practitioner Family; Visit Provider Surgery Vascular Surgery | DX: S81.802D Unspecified open wound, left lower leg, subsequent encounter (principal) | CPT/HCPCS: 99212 ==

== ENCOUNTER → 2022-08-09 10:18 | Outpatient (BNVA) | payer MEDICARE, MEDICAID, SELFPAY | PROVIDERS: PCP Nurse Practitioner Family; Visit Provider Surgery Vascular Surgery | DX: L97.229 Non-pressure chronic ulcer of left calf with unspecified severity (principal) | CPT/HCPCS: 99212 ==

== ENCOUNTER 2023-07-10 14:52 | Outpatient (AMB) | payer MEDICARE, MEDICAID, SELFPAY ==
[2023-07-10 15:15] VITALS: BP 138/82; PULSE 81; O2SAT 97; BMI 39.2
--- NOTE | 2023-07-10 15:15 | A.OFFPC_ITS ---
Vital Signs 07/10/23 15:15 Height 5 ft 4 in Weight 228 lb 8 oz BMI 39.2 BP 138/82 Blood Pressure Location Rt brachial Position Sitting Pulse 81 Pulse Source Pulse Oximeter Pulse Oximetry (%) 97 Oxygen Delivery Method Room Air Intake Visit Reasons: Followup meds Allergies gabapentin Allergy (Unknown, Verified 07/10/23 15:44) nausea and vomiting levofloxacin Allergy (Unknown, Verified 07/10/23 15:44) nausea and vomiting Sulfa (Sulfonamide Antibiotics) Allergy (Unknown, Verified 07/10/23 15:44) vomiting sulfamethoxazole [From BACTRIM] Allergy (Unknown, Verified 07/10/23 15:44) RASH trimethoprim [From BACTRIM] Allergy (Unknown, Verified 07/10/23 15:44) RASH Medication List - Last Reconciled 07/10/23 by RANDOLPH Payton acetaminophen 1,000 mg PO Q6H PRN amlodipine (Norvasc) 10 mg (2 x 5 mg) PO DAILY buspirone 5 mg PO BID cholecalciferol (vitamin D3) 100 mcg PO DAILY L.ac,bul,par,rha-B.ani,wil-inu 10 billion cell -100 mg (Probitoic Digestive Support (6 strain)) caps PO metoprolol succinate ER 150 mg (1.5 x 100 mg) PO DAILY 90 days omeprazole 20 mg PO DAILY [prevagen buccal] Tobacco use date assessed: 07/10/23 Fall risk assessment: No Falls in past year Last assessed Fall Risk: 07/10/23 Dental Screening Dental Screen Date: 07/10/23 Did you have a dental visit in the last 12 months?: No Did you have a dental problem in the last 6 months where you did not have access to dental care?: No Was dental information given to patient?: Patient has dentist HPI Followup meds HPI Details HTN: Blood pressure is stable, managed with amlodipine 10mg and metoprolol 150mg. Denies chest pain, shortness of breath, headache, dizziness, and blurred vision. Discharged from the wound center, she was seeing them for a wound of her left leg. Refuses mammo and any type of colon screen. refused ekg . Recommended pneum and influenza vaccination [facility] Medical History (Updated 07/10/23 @ 15:49 by RANDOLPH Payton) Venous insufficiency HTN (hypertension) Social History Household Members: Spouse and Family Housing: House Do you presently have visiting nurse or other home services: No Alcohol intake: never Patient Tobacco Use Status: Never used Tobacco service: No Current occupational status: retired Cognitive needs: No Hearing needs: No Vision needs: No Review of Systems Const Reports as per HPI Physical exam (Primary Care) Vital Signs: Last Vital Signs Pulse 81 07/10/23 15:15 BP 138/82 07/10/23 15:15 Pulse Ox 97 07/10/23 15:15 Oxygen Delivery Method Room Air 07/10/23 15:15 BMI result Body Mass Index 39.2 Tobacco/Smoking Status: Tobacco use Status Tobacco use date assessed 07/10/23 07/10/23 15:26 Patient Tobacco Use Status Never used Tobacco 07/10/23 15:26 Const General: cooperative Nutritional Appearance: obese Orientation/consciousness: patient oriented x3 Resp Effort & Inspection: normal respiratory effort Auscultation: clear to auscultation bilaterally Cardio Rate: regular rate Rhythm: regular rhythm Heart sounds: S1 normal heart sound present and S2 normal heart sound present Neuro General: patient oriented x3 Extrem Other: healing wound to medial aspect of distal left leg, no drainage, no signs of infection, compression stockings in place, + dorsalis pedis pulse Right lower extremity: edema Details: 1+ Left lower extremity: edema Details: 1+ Psych Appearance: grossly normal Mental Status: mental status grossly normal Speech and movement: Normal speech and movement present Affect: normal affect Attitude: cooperative Thought process: Normal thought process present Thought content: Normal thought content present Insight: Good insight present (Psych) Judgement: Good judgement present (Psych) Assessment and Plan Assessment & Plan (1) HTN (hypertension): Code(s): I10 - Essential (primary) hypertension Plan: Labs ordered (2) Postmenopausal: Code(s): Z78.0 - Asymptomatic menopausal state Plan: Vitamin D ordered Plan The patient agreed to the use of a medical sales consultant for this encounter. Scribed for RANDOLPH Mccray by praveen Vincent scribe, on 07/10/2023 at 15:25 EST. Orders: Orders TSH reflex Free T4 Today I10 - Essential (primary) hypertension Vitamin D 25-OH Total Today Z78.0 - Asymptomatic menopausal state Complete Blood Count Auto Diff Today I10 - Essential (primary) hypertension Comprehensive [place]. Panel Fast Today I10 - Essential (primary) hypertension UA CC w/rflx Micro + Cult Today I10 - Essential (primary) hypertension Lipid Panel Today I10 - Essential (primary) hypertension Coding Level of Care Code Est Pt Level 3 (72463) Diagnoses HTN (hypertension) I10 Postmenopausal Z78.0
== END 2023-07-10 16:46 | disposition home or self-care (01) ==
PROVIDERS: PCP Nurse Practitioner Family; Visit Provider Nurse Practitioner Family
DX: I10 Essential (primary) hypertension (principal); Z78.0 Asymptomatic menopausal state
CPT/HCPCS: 99213

== ENCOUNTER 2023-07-25 08:02 | Outpatient (REF) | payer MEDICARE, MEDICAID, SELFPAY ==
[2023-07-25 11:52] LABS: MANUAL DIFF FLAG NO
[2023-07-25 12:00] LABS: Appearance Urine Clear; Color Urine Yellow; Glucose Urine UA Negative (Negative); Leukocyte Esterase Urine Moderate (2+) (Negative); Nitrite Urine Negative (Negative); PH 5.5 (5.0-9.0); Specific Gravity - Urine 1.015 (1.005-1.025); UMIC TRIGGER UACC YES; Urine Blood Negative (Negative); Urine Ketones Negative (Negative); Urine Protein Negative (Neg-Trace)
[2023-07-25 12:03] LABS: Basophils Percent Auto 0.4 % (0-2); Eosinophils Absolute Auto 0.2 X10*3/uL (0.0-0.4); Eosinophils Percent Auto 2.7 % (0-4); Hematocrit 29.6 % (37.0-47.0); Imm Gran Abs Auto 0.05 X10*3/uL (0.00-0.03); Imm Gran Pct Auto 0.7 % (0.0-0.4); Lymphocytes Absolute Auto 1.2 X10*3/uL (1.2-4.9); Mean Corpuscular HGB Conc 30.4 g/dl (31.0-35.0); Mean Corpuscular Hemoglobin 23.7 pg (27.0-33.0); Mean Corpuscular Volume 78.1 fL (80.0-98.0); Mean Platelet Volume 10.9 fL (9.4-12.3); Monocytes Absolute Auto 0.5 X10*3/uL (0.1-1.2); Monocytes Percent Auto 7.8 % (2-11); Neutrophils Absolute Auto 4.8 x10*3/uL (2.0-8.3); Neutrophils Percent Auto 70.4 % (45-73); Platelet Count 227 X10*3/uL (160-400); Red Blood Count 3.79 X10*6/uL (4.20-5.50); Red Cell Distribution Width 15.9 % (11.0-16.0); White Blood Count 6.8 X10*3/uL (4.8-10.8)
[2023-07-25 12:10] LABS: Bacteria Urine None Seen (None Seen); Hyaline Casts Urine 0-2 /LPF (0-2); RBC Urine 0-2 /HPF (0-2); UACC Culture Trigger YES
[2023-07-25 12:33] LABS: Alanine Aminotransferase 12 U/L (0-31); Albumin Level 4.1 g/dL (3.5-5.0); Alkaline Phosphatase 90 U/L (39-117); Anion Gap 12 (12-20); Aspartate Amino Transferase 12 U/L (5-31); Bilirubin Total 0.5 mg/dL (0.0-1.0); Blood Urea Nitrogen 18 mg/dL (9-16); Calcium 9.2 mg/dL (8.4-10.2); Carbon Dioxide 24 mmol/L (22-29); Chloride 106 mmol/L (96-108); Cholesterol 204 mg/dL (<200); Estimated Glomerular Filt Rate > 60; Glucose Fasting 109 mg/dL (60-99); HDL Cholesterol 59 mg/dL (>40); LDL Cholesterol Calculated 121 mg/dL (<100); Sodium 138 mmol/L (135-145); Total Protein 7.1 g/dL (6.5-8.0); Triglycerides 124 mg/dL (<150)
[2023-07-25 12:53] LABS: TSH reflex Free T4 2.22 uIU/mL (0.32-4.0); Vitamin D 25-OH Total 101.2 ng/mL (>30)
== END 2023-07-25 08:03 | disposition home or self-care (01) ==
LOC: HO.HMGCLDS 08:02
PROVIDERS: PCP Nurse Practitioner Family; Visit Provider Nurse Practitioner Family
DX: I10 Essential (primary) hypertension (principal); Z78.0 Asymptomatic menopausal state; E55.9 Vitamin D deficiency, unspecified; R30.0 Dysuria
CPT/HCPCS: 36415; 80053; 80061; 81001; 82306; 84443; 85025; 87086

== ENCOUNTER 2025-08-14 14:06 | Outpatient (AMB) | payer MEDICARE, SELFPAY ==
[2025-08-14 14:14] VITALS: BP 140/68; PULSE 94; RESP 16; O2SAT 98; BMI 39.3
--- NOTE | 2025-08-14 14:14 | A.OFFPC_ITS ---
Vital Signs 08/14/25 14:14 Height 5 ft 4 in Weight 229 lb BMI 39.3 BP 140/68 H Blood Pressure Location Lt brachial Position Sitting Respiration 16 Pulse 94 Pulse Source Pulse Oximeter Pulse Oximetry (%) 98 Oxygen Delivery Method Room Air Intake Visit Reasons: Annual PE - see comments Rocket Motor Tester Required: No Accompanied by: Spouse Allergies gabapentin Allergy (Unknown, Verified 08/14/25 14:17) nausea and vomiting levofloxacin Allergy (Unknown, Verified 08/14/25 14:17) nausea and vomiting Sulfa (Sulfonamide Antibiotics) Allergy (Unknown, Verified 08/14/25 14:17) vomiting sulfamethoxazole (From BACTRIM) Allergy (Unknown, Verified 08/14/25 14:17) RASH trimethoprim (From BACTRIM) Allergy (Unknown, Verified 08/14/25 14:17) RASH Medication List - Last Reconciled 08/14/25 by MARKUS PaytonP-BC acetaminophen 1,000 mg PO Q6H PRN amlodipine 10 mg PO DAILY cholecalciferol (vitamin D3) 100 mcg PO DAILY L.ac,bul,par,rha-B.ani,wil-inu 10 billion cell -100 mg (Probitoic Digestive Support (6 strain)) caps PO metoprolol succinate ER 150 mg (1.5 x 100 mg) PO DAILY 90 days [prevagen buccal] Tobacco use date assessed: 08/14/25 Fall risk assessment: No Falls in past year Last assessed Fall Risk: 08/14/25 Dental Screening Dental Screen Date: 08/14/25 Did you have a dental visit in the last 12 months?: Yes Did you have a dental problem in the last 6 months where you did not have access to dental care?: No Was dental information given to patient?: Patient has dentist HPI Annual PE - see comments HPI Details History of Present Illness The patient is a 70-year-old female presenting for a physical examination and preventative care measures. She reports doing quite well overall, despite being morbidly obese. The patient has a history of morbid obesity, which has been a longstanding issue. She currently exhibits +1 edema in the lower extremities, wearing compression stockings. Additionally, a head tic was noted during the examination, though it does not appear to be causing significant distress or functional impairment at this time. Preventative care measures were discussed, including the need for a mammogram, which the patient is due for, and she has agreed to proceed with this screening. She declines any colon cancer screening or Cologuard testing at this time. The patient is also due for multiple vaccinations, which have been documented and provided to her for future administration. A bone density test and lab work have been ordered, and she is instructed to fast prior to these tests. HTN: pt reports medical facilities cause BP increases Health Maintenance - Mammogram ordered for breast cancer sc reening - Bone density test ordered for osteopor osis screening - Vaccinations due and documented for fu ture administration Social History Review of Systems - General: Reports doing quite well over all -denies any cp, sob, fevers, chills, jose eduardo rrhea, constipation, n/v, urinary issues, SI or hi Physical Exam General: Cooperative, healthy appearing, comfortable, no acute distress and well developed, obese Orientation: Patient oriented x3 Limitations: No limitations Head: Normal to inspection, but a head tick was noted Ears: Hearing grossly normal bilaterally Nose: Normal external nose present Face and sinus: Normal facial exam Eyes: Appearance normal, both eyes and all related structures Neck: Normal visual inspection and Yes full ROM Respiratory: Normal respiratory effort and able to speak in complete sentences. Clear to auscultation bilaterally Cardiovascular: Regular rate and rhythm. Normal S1 and S2 GI: Normal to inspection. Soft to palpation and nontender Skin: No rashes or lesions noted Neuro: Patient oriented x3 Extremities: +1 edema in the lower extremities, otherwise normal to inspection Results Plan 1. Morbid Obesity The patient is advised to continue monitoring her weight and consider lifestyle modifications to address her morbid obesity. 2. Preventative Care: Mammogram A mammogram has been ordered as part of routine breast cancer screening. 3. Preventative Care: Bone Density Test A bone density test has been ordered to screen for osteoporosis. 4. Preventative Care: Vaccinations The patient is due for multiple vaccinations, which have been documented and provided for future administration. 5. HTN: will have her take her BP at h ome, and she will send me values via the portal in the near future Discussion Notes During the visit, I discussed the importance of preventative care measures with the patient, including the need for a mammogram and bone density test. I also emphasized the importance of receiving vaccinations and provided her with a list of those due. The patient was informed about the necessity of fasting before her lab work and bone density test. Patient Instructions - Schedule and complete the mammogram as ordered. - Arrange for the bone density test and ensure fasting before the test. - Review the list of vaccinations and pl an to receive them soon. [facility] Medical History Venous insufficiency HTN (hypertension) Social History Household Members: Spouse and Family Housing: House Do you presently have visiting nurse or other home services: No Alcohol intake: never Patient Tobacco Use Status: Never used Tobacco service: No Current occupational status: retired Cognitive needs: No Hearing needs: No Vision needs: No Questionnaire PHQ-9 Over the last 2 weeks, how often have you been bothered by any of the following problems? 63111 - PHQ-9 Billing: Patient declined-do not bill Source: Developed by Drs. Vinny Burns, Nazia Pearl, Omi Hernandez and colleagues, with an educational derrek from [facility]. Physical exam (Primary Care) Vital Signs: Last Vital Signs Pulse 94 08/14/25 14:14 Resp 16 08/14/25 14:14 BP 140/68 H 08/14/25 14:14 Pulse Ox 98 08/14/25 14:14 Oxygen Delivery Method Room Air 08/14/25 14:14 BMI result Body Mass Index 39.3 Tobacco/Smoking Status: Tobacco use Status Tobacco use date assessed 08/14/25 08/14/25 14:21 Patient Tobacco Use Status Never used Tobacco 08/14/25 14:15 Immunizations pneumoc 20-naina conj-dip cr(PF) 0.5 mL IM syringe Performing Provider: RANDOLPH Payton Performing Location: [facility] Administered by: Blanca Diamond CMA on 08/14/25 14:55 Dose Route Admin Location Dispensed Lot Number Expiration Date [facility] Bottle Packing Machine Cleaner 0.5 mL IM Right Deltoid 0.5 mL [id number] 12/20/25 [employer]EN[employer]ETTA Miner/PFIZER Total Dispensed Waste 0.5 mL 0 % VIS Given Date VIS Provided VIS Publication Date 08/14/25 Single Vaccine 25 Eligibility Eligibility Date Funding Source Not [facility] Eligible 08/14/25 Private Coding Level of Care Code Est Pt Level 3 (86367) Est Pt Prev Care >65y(68985) Diagnoses Encounter for routine adult physical exam with abnormal findings Z00. Vitamin D deficiency E55.9 Postmenopausal Z78.0 HTN (hypertension) I10 Assessment & Plan Assessment & Plan (1) Encounter for routine adult physical exam with abnormal findings: Code(s): Z00.01 - Encounter for general adult medical examination with abnormal findings Category: Medical (2) Vitamin D deficiency: Code(s): E55.9 - Vitamin D deficiency, unspecified Category: Medical (3) Postmenopausal: Code(s): Z78.0 - Asymptomatic menopausal state Category: Medical (4) HTN (hypertension): Code(s): I10 - Essential (primary) hypertension Category: Medical Plan . Orders: Orders Comprehensive [place]. Panel Fast Today Z00. - Encounter for general adult medical examination with abnormal findings Lipid Panel Today Z00. - Encounter for general adult medical examination with abnormal findings XR DEXA axial skeleton Today E55.9 - Vitamin D deficiency, unspecified, Z78.0 - Asymptomatic menopausal state Pneumococcal 20 Immunization Today Z23 - Encounter for immunization Complete Blood Count Auto Diff Today Z00. - Encounter for general adult medical examination with abnormal findings TSH reflex Free T4 Today Z00.01 - Encounter for general adult medical examination with abnormal findings UA CC w/rflx Micro + Cult Today Z00.01 - Encounter for general adult medical examination with abnormal findings MM screening mammo BI Today Z12.31 - Encounter for screening mammogram for malignant neoplasm of breast Vitamin D 25-OH Total Today E55.9 - Vitamin D deficiency, unspecified
--- OUTSIDE RECORDS SUMMARY | 2025-08-14 17:56 | XMS_ITS | Clinical Summary ---
Author Organization [facility] Address [address] [place] [address] Care Team Providers Care Manager Universal Name Role Phone Arian Heredia Primary Care Provider Allergies Active Allergy Reactions Criticality Noted Date Comments Sulfamethoxazole-Trimethoprim Vomiting 2021 Medications amLODIPine (NORVASC) 5 mg tablet 5 mg 2 (two) times a day. 2 Active busPIRone (BUSPAR) 5 mg tablet Take 5 mg by mouth 2 times a day. 2 Active traMADoL (ULTRAM) 50 mg tablet as needed. 2 Active metoprolol succinate XL (TOPROL XL) 100 mg tablet Take 100 mg by mouth once a day. Unsure of mg dose Active Lactobacillus acidophilus (Probiotic) 10 billion cell capsule Take by mouth. Activ e omeprazole OTC (PriLOSEC OTC) 20 mg EC tablet Take 20 mg by mouth once a day. Active collagenase (SANTYL) ointmentIndicatio ns:Chronic venous hypertension with inflammation, left Apply topically to the affected area once a day. Apply to left leg wound daily. Apply a nickel thick layer to wound bed. 30 g 2 2 Active Active Problems Problem Noted Date Diagnosed Date Chronic venous hypertension with inflammation, l eft 09/02/2022 Social History Tobacco Use Types Packs/Day Years Used Date Smoking Tobacco: Never Assessed Comments Unknown Sex and Gender Information Value Date Recorded Sex Assigned at Not on file Legal Sex Female 1:49 PM EDT Gender Identity Not on file Sexual Orientation Not on file Last Filed Vital Signs Vital Sign Reading Time Taken Comments Blood Pressure 149/73 09/01/2022 11:24 AM EST Pulse 76 09/01/2022 11:14 AM EST Temperature 36.9 C (98.4 F) 09/01/2022 11:14 AM EST Respiratory Rate 18 09/01/2022 11:14 AM EST Oxygen Saturation 98% 09/01/2022 11:14 AM EST Inhaled Oxygen Concentration - - Weight 100.2 kg (221 lb) 09/01/2022 11:14 AM EST Height 162.6 cm (5' 4 ) 09/01/2022 11:14 AM EST Body Mass Index 37.93 09/01/2022 11:14 AM EST Plan of Treatment Health Maintenance Due Date Last Done Comments Cologuard 1953 Colon Cancer Screening 1955 Colonoscopy 1953 FOBT / Fit Test 1953 Hepatitis C Screening 1953 Sigmoidoscopy 1953 DTaP,Tdap,and Td Vaccines (1 - Tdap) 1975 Mammogram 1993 Osteoporosis Screening 2003 Pneumococcal Vaccine: 50+ Years (1 of 1 - PCV) 2003 Zoster Vaccines (1 of 2) 2003 Alcohol/Substance Use Screening 10/23/2024 Depression Screening and Follow-Up 10/23/2024 Health Care Proxy Review 10/23/2024 Social Drivers of Health Annual Screening 10/23/2024 COVID-19 Vaccine (4 - 2024-2 6 season) 2025 08/16/2021, 01/08/2021, 12/11/2020 Influenza Vaccine (#1) 2025 08/03/2021 RSV Vaccine (60+ years old a nd patients) (1 - 1-dose 75+ series) 2028 Hepatitis B Vaccines Aged Out No long er eligible based on patient's age to complete this topic Insurance [facility] Care Teams Manager Universal Relationship Specialty Start Date End Date Arian Heredia [address] [place] [address] PCP - General 08/16/22
== END 2025-08-14 16:14 | disposition home or self-care (01) ==
PROVIDERS: PCP Nurse Practitioner Family; Visit Provider Nurse Practitioner Family
DX: Z00.01 Encounter for general adult medical examination with abnormal findings (principal); E55.9 Vitamin D deficiency, unspecified; Z78.0 Asymptomatic menopausal state; I10 Essential (primary) hypertension; Z23 Encounter for immunization

== ENCOUNTER → 2025-08-14 14:06 | Outpatient (BNVA) | payer MEDICARE, SELFPAY | PROVIDERS: PCP Nurse Practitioner Family; Visit Provider Nurse Practitioner Family | DX: Z00.01 Encounter for general adult medical examination with abnormal findings (principal); E66.01 Morbid (severe) obesity due to excess calories; I10 Essential (primary) hypertension; E55.9 Vitamin D deficiency, unspecified; Z23 Encounter for immunization; Z78.0 Asymptomatic menopausal state; Z68.39 Body mass index [BMI] 39.0-39.9, adult | CPT/HCPCS: 90471; 90677; 99397 ==